=== PATIENT | male | born 1970 | race Caucasian/White ===

== ENCOUNTER 2016-08-28 13:55 | Emergency (ER) | payer OTHER ==
[~2016-08-28] VITALS: Ht 182.8 cm; Wt 113.4 kg
[~2016-08-28 13:55] MED LIST: AMARYL2 MG PO; ASPIRIN EC325 MG PO; CYCLOBENZAPRINE10 MG PO; GLIPIZIDE10 M2 PO; GLIPIZIDE5 MG PO; HYDROCODONE BIT1 T11 PO; LANTUS100 U/ML SC; LISINOPRIL-HYDR1 TA4 PO; LISINOPRIL20 MG PO; LOVASTATIN40 MG PO; LYRICA PO; MEDROL DOSEPAK4 MG PO; METFORMIN1000 MG PO; METFORMIN500 MG PO; NORCO 10-325 T1 EACH PO; NORCO 7.5-3251 EACH PO; PLAVIX75 M1 PO; PLAVIX75 MG PO; SLOW-MAG 106 MG1 ECT PO; TEST STRIPS1 EACH DIAG; TOPROL XL25 MG PO; TRAMADOL50 MG PO; VICODIN ES 7501 TAB PO; VYTORIN 10 MG-41 TA1 PO; XANAX XR0.5 MG PO; ZANTAC 150150 MG PO; ZOCOR20 MG PO; ZOFRAN4 MG PO
[2016-08-28] MEDS ORDERED: ELIQUIS5 M1 PO (14:00)
[2016-08-28] MEDS ORDERED: CYMBALTA20 M1 PO (14:00)
[2016-08-28] MEDS ORDERED: ALPRAZOLAM0.5 M3 PO (14:00)
== END 2016-08-28 16:08 | disposition home or self-care (01) ==
LOC: ED 13:55
DX: S90.01XA Contusion of right ankle, initial encounter (principal); E11.9 Type 2 diabetes mellitus without complications; F17.200 Nicotine dependence, unspecified, uncomplicated; Z79.4 Long term (current) use of insulin; W01.0XXA Fall on same level from slipping, tripping and stumbling without subsequent striking against object, initial encounter; Y92.9 Unspecified place or not applicable; Y99.9 Unspecified external cause status; Y93.89 Activity, other specified

== ENCOUNTER 2016-09-18 18:49 | Inpatient (IN) | payer OTHER ==
[~2016-09-18] VITALS: Ht 182.8 cm; Wt 118.9 kg
--- NOTE | ~2016-09-18 | WRIGHTHP ---
[place], [place] PATIENT HISTORY AND PHYSICAL EXAM NAME: ROLAND CASE [facility] #: [id number] UNIT #: [id number] ROOM: 532 DOCTOR: LAURA YOUSIF MD BIRTHDATE: [birth year] DOS: 09/19/2016 HISTORY OF PRESENT ILLNESS: This patient is 46 years old. The patient comes in with complaints of not feeling good, tiredness and weakness. He thought maybe he had a bladder infection, which he has had in the past, so decided to come into the Emergency Room. He came into the ER, was evaluated and was found to be in rapid AFib and was admitted. He states that he was on Rythmol, but this medicine was discontinued a few months ago. Denies having any chest pains or palpitations, does not have any fever or chills, does not have any nausea or emesis. He does have chronic back pain, but that is under control. PAST MEDICAL HISTORY: Significant for: 1. Chronic atrial fibrillation. 2. Diabetes mellitus type 2, insulin-dependent, poorly controlled with diabetic nephropathy. 3. Benign hypertension. 4. Chest pain with a negative cardiac cath in 2015. 5. History of CVA. 6. Carotid atherosclerosis. 7. Peripheral vascular disease. 8. Chronic back pain from spinal stenosis. MEDICATIONS: The patient is on are Eliquis 5 mg b.i.d., duloxetine 60 daily, Xanax 0.5 daily, glipizide 10 b.i.d., [place] 10 q.i.d., lisinopril 20 daily, Lyrica 150 t.i.d., metformin 500 b.i.d., metoprolol 25 b.i.d., ranitidine 150 b.i.d., Zocor 20 daily, insulin 40 units at bedtime. SOCIAL HISTORY: Smoker of about 1-1.5 packs of cigarettes. Denies using alcohol. Lives at home with his . He has 3 children. PHYSICAL EXAMINATION: VITAL SIGNS: His blood pressure is 144/92, pulse of 96, respirations 20, temperature 97.9. LUNGS: Diminished breath sounds. No wheezes heard. CARDIOVASCULAR: Irregular. Heart rate was in the 130s when he came, this morning it is down to 90s. ABDOMEN: Obese, soft, nontender. EXTREMITIES: Without any edema. ASSESSMENT AND PLAN: 1. Atrial fibrillation with rapid ventricular response. The patient has been placed on IV Cardizem. The heart rate seems to have slowed down. We will continue his Eliquis and Rythmol. We will metoprolol. We will discontinue the Cardizem since the heart rate is controlled we would watch him for 24 hours. 2. Lactic acid elevation could be from the metformin that he is on. 3. Possible urinary tract infection. Urine culture will be sent. IV Rocephin was given. He has normal white cell count. 4. Type 2 diabetes mellitus, insulin-dependent, on insulin, which is continued. 5. Diabetic nephropathy with chronic renal failure, stage 3. Avoid nephrotoxic [place], [place] PATIENT HISTORY AND PHYSICAL EXAM NAME: ROLAND CASE [facility] #: [id number] UNIT #: [id number] ROOM: [facility] DOCTOR: LAURA YOUSIF MD BIRTHDATE: [birth year] medications. LAURA YOUSIF MD CM:HISPHYS:PATIENT HISTORY AND PHYSICAL EXAMINATION [id number] LAURA YOUSIF MD 09/19/16 1322 interface
--- NOTE | ~2016-09-18 | PR ---
[place], [place] PROGRESS NOTE NAME: ROLAND CASE UNIT #: [id number] ROOM: 532 DOCTOR: LAURA YOUSIF MD BIRTHDATE: [birth year] DOS: 09/20/2016 SUBJECTIVE: The patient is doing fine without any complaints. Heart rate is in the 90s, but when he gets up, it does go up into the low 100s. He does not have any complaints of chest pains or palpitations. OBJECTIVE: VITAL SIGNS: Blood pressure is 114/70, pulse of 103, respirations 20, temperature 98.4. LUNGS: Diminished breath sounds, clear. HEART: Irregular. ABDOMEN: Obese, soft, nontender. EXTREMITIES: Without any edema. LABORATORY DATA: Urine culture negative. Blood cultures negative. ASSESSMENT AND PLAN: 1. Atrial fibrillation with rapid ventricular response. Heart rate is better controlled now. The patient is on Rythmol. We will increase the dose of his metoprolol. 2. Urine culture was sent, which was negative. Blood cultures, no bacterial growth. Lactic acid elevation most likely from metformin. 3. Type 2 diabetes mellitus, insulin-dependent. Blood sugars are controlled. LAURA YOUSIF MD CM:PNTRANS 8 LAURA YOUSIF MD 09/21/169 interface
--- NOTE | ~2016-09-18 | DS ---
[place], [place] DISCHARGE SUMMARY NAME: ROLAND CASE UNIT #: [id number] ROOM: 532 DOCTOR: LAURA YOUSIF MD BIRTHDATE: [birth year] DOS: 09/20/2016 DIAGNOSES: 1. Atrial fibrillation with rapid ventricular response. 2. Lactic acidosis from metformin. 3. Benign hypertension. 4. Type 2 diabetes mellitus, insulin-dependent. 5. Diabetic nephropathy. 6. Cardiac catheterization, 2015, showing no coronary artery disease. 7. Carotid atherosclerosis. 8. Peripheral vascular disease. 9. Chronic back pain. 10. Generalized anxiety disorder. 11. History of cerebrovascular accident. DISCHARGE MEDICATIONS: Propafenone 150 t.i.d., metoprolol 50 b.i.d., ranitidine 150 b.i.d., glipizide 10 b.i.d., metformin 500 b.i.d., simvastatin 20 daily, Lantus 40 units subQ at bedtime, lisinopril/hydrochlorothiazide 12.5/20 one tablet daily, Eliquis 5 b.i.d., duloxetine 60 daily, ____ 10 q.i.d., Lyrica 150 t.i.d., Xanax 0.5 daily. HOSPITAL COURSE: This patient is 46 years old, comes in with complaints of feeling tired, weak legs. Please refer to H and P for details. Was found to be in rapid AFib, was admitted to monitored floor. Adjustments in medications were made. Thyroid functions were checked. Urine culture and blood culture were done. The patient did have a lactic acidosis, which most likely is from the metformin that he is on. His blood sugars are fairly under control in the high 100s. The rest of the labs were all within normal limits. WBC count is normal. Blood cultures and urine cultures so far negative. Heart rate is controlled in the low 90s except when he is ambulatory. The patient is stable and can be discharged to home today to be followed up as an outpatient. Echocardiogram was also ordered and is pending. [place], [place] DISCHARGE SUMMARY NAME: ROLAND CASE UNIT #: [id number] ROOM: 532 DOCTOR: LAURA YOUSIF MD BIRTHDATE: [birth year] LAURA OYUSIF MD CM:CLAUDIO 3 27 LAURA YOUSIF MD 09/20/161227 interface
[~2016-09-18 18:49] MED LIST changes: +ALPRAZOLAM0.5 M3 PO; +CYMBALTA20 M1 PO; +ELIQUIS5 M1 PO
[2016-09-18 18:52] VITALS: BP 148/63
[2016-09-18 19:44] LABS: BASO % 0.4 % (0.0-1.0); EOS # 0.4 10*3/uL (0.0-0.4); EOS % 3.8 % (1.0-4.0); HEMATOCRIT 44.5 % (42.0-52.0); IG # 0.1 10*3/uL (0.0-0.1); LYMPH # 2.6 10*3/uL (1.3-4.4); LYMPH % 26.6 % (27.0-41.0); MEAN CELL VOLUME 86.1 fl (80.0-94.0); MEAN CORPUSCULAR HGB CONC 33.7 g/dl (33.0-37.0); MEAN PLATELET VOLUME 12.6 fl (9.6-12.3); MONO % 10.6 % (3.0-9.0); NEUT # 5.7 10*3/uL (2.3-7.9); NEUT % 57.7 % (47.0-73.0); PLATELET COUNT AUTOMATED 123 10*3/uL (130-400); RED BLOOD COUNT 5.17 10*6/uL (4.50-5.90); RED CELL DISTRI WIDTH 13.5 % (0-14.5); WHITE BLOOD COUNT 9.8 10*3/uL (4.8-10.8)
[2016-09-18 19:53] LABS: PROTHROMBIN TIME 10.1 SECONDS (9.0-12.4)
[2016-09-18 20:02] LABS: ALBUMIN 3.2 gm/dl (3.1-4.5); ALKALINE PHOSPHATASE 64 U/L (45-117); BILIRUBIN, TOTAL 0.3 mg/dl (0.2-1.0); BUN 22 mg/dl (7-24); CARBON DIOXIDE 26 mmol/L (21-32); CHLORIDE 99 mmol/L (98-107); EST GLOM FILT AFRICAN AMERICAN > 60 ml/min; GLUCOSE 275 mg/dL (65-99); MAGNESIUM 1.7 mg/dL (1.5-2.1); SGOT/AST 13 IU/L (3-35); SGPT/ALT 25 U/L (12-78); SODIUM 139 mmol/L (136-145); TOTAL PROTEIN 6.8 gm/dL (6.4-8.2)
[2016-09-18 20:04] LABS: BILIRUBIN NEGATIVE (NEGATIVE); BLOOD NEGATIVE (NEGATIVE); CLARITY CLEAR (CLEAR); COLOR YELLOW (YELLOW); GLUCOSE TRACE (NEGATIVE); KETONE NEGATIVE (NEGATIVE); LEUKO ESTERASE NEGATIVE (NEGATIVE); NITRITE NEGATIVE (NEGATIVE); PROTEIN NEGATIVE (NEGATIVE); SPECIFIC GRAVITY 1.025 (1.005-1.030); UROBILINOGEN 0.2 E.U./dl (0.2-1.0)
[2016-09-18 20:05] VITALS: BP 115/87
[2016-09-18 20:06] LABS: TROPONIN I < 0.015 ng/ml (<0.045)
[2016-09-18 20:18] LABS: BACTERIA TRACE; MUCOUS TRACE; RBC 0-2 rbc/hpf (0-2); URINE REFLEX COMMENT NO (NO); WBC 0-2 wbc/hpf (0-5)
[2016-09-18 20:47] VITALS: BP 134/71
[2016-09-18 21:24] VITALS: BP 129/71
[2016-09-18 21:41] LABS: LA>2 REFLEX 2 HR DRAW NOW
[2016-09-18 22:00] VITALS: BP 123/77
[2016-09-18 22:11] LABS: LA>2 RFLX FOLLOW UP AT 2 HRS 2.1 mmol/L (0.4-2.0)
[2016-09-19] VITALS: BP 129/56
[2016-09-19 00:04] LABS: LA>2 REFLEX 4 HR DRAW NOW
[2016-09-19 08:00] VITALS: BP 128/74
[2016-09-19 10:42] VITALS: BP 144/92
[2016-09-19 12:00] VITALS: BP 121/61
[2016-09-19 16:00] VITALS: BP 118/70
[2016-09-19] MEDS ORDERED: LYRICA75 M1 PO (19:13)
[2016-09-19 20:00] VITALS: BP 122/60; BP 91/59
[2016-09-20] VITALS: BP 96/51
[2016-09-20 05:46] VITALS: BP 104/62
[2016-09-20 08:00] VITALS: BP 114/70
[2016-09-20] MEDS ORDERED: LYRICA75 M1 PO (09:10)
[2016-09-20] MEDS ORDERED: NORCO 10-325 T1 EACH PO (09:10)
[2016-09-20] MEDS ORDERED: PROPAFENONE HC150 MG PO (09:10)
[2016-09-20] MEDS ORDERED: METOPROLOL SUCC25 M2 PO (09:10)
[2016-09-20] MEDS ORDERED: ALPRAZOLAM0.5 M3 PO (09:10)
== END 2016-09-20 10:40 | disposition home or self-care (01) | DRG 309 ==
LOC: ED 18:49 → 5E 21:03 → EDHOLD 21:03 → 5E 21:27
PROVIDERS: Nurse Practitioner Family
DX: I48.2 Chronic atrial fibrillation (principal); N39.0 Urinary tract infection, site not specified; E87.2 Acidosis; E11.21 Type 2 diabetes mellitus with diabetic nephropathy; I10 Essential (primary) hypertension; T38.3X5A Adverse effect of insulin and oral hypoglycemic [antidiabetic] drugs, initial encounter; M54.9 Dorsalgia, unspecified; E11.51 Type 2 diabetes mellitus with diabetic peripheral angiopathy without gangrene; F41.1 Generalized anxiety disorder; G89.29 Other chronic pain; Z86.73 Personal history of transient ischemic attack (TIA), and cerebral infarction without residual deficits; Y92.89 Other specified places as the place of occurrence of the external cause

== ENCOUNTER 2017-02-19 12:21 | Emergency (ER) | payer OTHER ==
[~2017-02-19] VITALS: Ht 182.8 cm; Wt 117.9 kg
[~2017-02-19 12:21] MED LIST changes: +LYRICA75 M1 PO; +METOPROLOL SUCC25 M2 PO; +PROPAFENONE HC150 MG PO
[2017-02-19 13:02] LABS: BASO % 0.4 % (0.0-1.0); EOS # 0.3 10*3/uL (0.0-0.4); HEMATOCRIT 44.1 % (42.0-52.0); HEMOGLOBIN 15.1 g/dl (14.0-18.0); LYMPH # 2.6 10*3/uL (1.3-4.4); MEAN CELL VOLUME 85.5 fl (80.0-94.0); MEAN CORPUSCULAR HGB 29.3 pg (27.0-31.0); MEAN CORPUSCULAR HGB CONC 34.2 g/dl (33.0-37.0); MONO # 0.7 10*3/uL (0.1-1.0); MONO % 8.1 % (3.0-9.0); NEUT # 5.3 10*3/uL (2.3-7.9); NEUT % 58.9 % (47.0-73.0); PLATELET COUNT AUTOMATED 107 10*3/uL (130-400); RED BLOOD COUNT 5.16 10*6/uL (4.50-5.90); RED CELL DISTRI WIDTH 13.8 % (0-14.5)
[2017-02-19 13:17] LABS: ALBUMIN 3.5 gm/dl (3.1-4.5); ALKALINE PHOSPHATASE 60 U/L (45-117); BUN 19 mg/dl (7-24); CHLORIDE 105 mmol/L (98-107); CPK 83 U/L (39-308); CREATININE 1.26 mg/dL (0.70-1.30); MAGNESIUM 1.4 mg/dL (1.5-2.1); POTASSIUM 4.1 mmol/L (3.5-5.1); SGOT/AST 14 IU/L (3-35); SGPT/ALT 24 U/L (12-78); SODIUM 138 mmol/L (136-145); TOTAL PROTEIN 7.3 gm/dL (6.4-8.2)
[2017-02-19 13:18] LABS: CKMB 1.6 ng/ml (0.5-3.6)
[2017-02-19 13:19] LABS: TROPONIN I < 0.015 ng/ml (<0.045)
== END 2017-02-19 14:28 | disposition left against medical advice (07) ==
LOC: ED 12:21
PROVIDERS: Nurse Practitioner Family
DX: I48.92 Unspecified atrial flutter (principal); R03.0 Elevated blood-pressure reading, without diagnosis of hypertension; E11.9 Type 2 diabetes mellitus without complications; I48.91 Unspecified atrial fibrillation; F17.200 Nicotine dependence, unspecified, uncomplicated; Z98.890 Other specified postprocedural states; Z79.899 Other long term (current) drug therapy

== ENCOUNTER 2017-10-25 21:04 | Emergency (ER) | payer OTHER ==
[~2017-10-25] VITALS: Ht 182.8 cm; Wt 117.9 kg
[~2017-10-25 21:04] MED LIST changes: +LANTUS SOL100 UNIT/1 SQ; -LANTUS100 U/ML SC; +LISINOPRIL-HCT1 EACH PO
[2017-10-25 22:31] LABS: BASO % 0.4 % (0.0-1.0); EOS # 0.5 10*3/uL (0.0-0.4); EOS % 4.7 % (1.0-4.0); HEMATOCRIT 38.9 % (42.0-52.0); HEMOGLOBIN 12.9 g/dl (14.0-18.0); LYMPH # 2.5 10*3/uL (1.3-4.4); LYMPH % 24.5 % (27.0-41.0); MEAN CELL VOLUME 87.2 fl (80.0-94.0); MEAN CORPUSCULAR HGB 28.9 pg (27.0-31.0); MEAN CORPUSCULAR HGB CONC 33.2 g/dl (33.0-37.0); MEAN PLATELET VOLUME 12.6 fl (9.6-12.3); MONO # 1.2 10*3/uL (0.1-1.0); MONO % 11.6 % (3.0-9.0); NEUT # 5.9 10*3/uL (2.3-7.9); NEUT % 58.2 % (47.0-73.0); PLATELET COUNT AUTOMATED 100 10*3/uL (130-400); RED BLOOD COUNT 4.46 10*6/uL (4.50-5.90); RED CELL DISTRI WIDTH 15.3 % (0-14.5); WHITE BLOOD COUNT 10.1 10*3/uL (4.8-10.8)
[2017-10-25 22:47] LABS: ALBUMIN 3.3 gm/dl (3.1-4.5); CREATININE 1.6 mg/dL (0.70-1.30); POTASSIUM 3.8 mmol/L (3.5-5.1); TOTAL PROTEIN 6.8 gm/dL (6.4-8.2)
[2017-10-25] MEDS ORDERED: SEPTDS PO (23:05)
== END 2017-10-26 01:18 | disposition home or self-care (01) ==
LOC: ED 21:04
PROVIDERS: Student in an Organized Health Care Education/Training Program
DX: L03.031 Cellulitis of right toe (principal); I48.92 Unspecified atrial flutter; E11.65 Type 2 diabetes mellitus with hyperglycemia; Z98.890 Other specified postprocedural states; Z79.899 Other long term (current) drug therapy; Z79.4 Long term (current) use of insulin

== ENCOUNTER 2017-11-05 22:26 | Inpatient (IN) | payer OTHER ==
[2017-11-05] VITALS (10 sets, daily range): BP systolic 75–126; BP diastolic 35–96
[~2017-11-05] VITALS: Ht 182.9 cm; Wt 119.5 kg
--- NOTE | ~2017-11-05 | PR ---
[place], [place] PROGRESS NOTE NAME: ROLAND CASE UNIT #: [id number] ROOM: [facility] DOCTOR: LAURA YOUSIF MD BIRTHDATE: [birth year] DOS: SUBJECTIVE: The patient is doing fairly well, does not have any new complaints. OBJECTIVE: VITAL SIGNS: Graphic trend shows pressure 111/59, pulse of 70, respirations 15 and temperature 97.5. LUNGS: Clear. HEART: Regular. ABDOMEN: Obese. EXTREMITIES: Without any edema. LABORATORY DATA: Shows a glucose of 119, BUN 30, creatinine 1.59, sodium 141, potassium 4.4 and chloride 113. ASSESSMENT AND PLAN: 1. Acute tubular necrosis from hypotension, most likely from the diarrhea that he had, is resolved and his kidney functions are back to close to his baseline. We will discontinue IV fluids and discharge him to home. 1. Type 2 diabetes mellitus. Blood sugars are fairly controlled. Metformin has been discontinued . LAURA YOUSIF MD CM:PNTRANS [id number] LAURA YOUSIF MD 11/07/17 1847 interface
--- NOTE | ~2017-11-05 | DS ---
[place], [place] DISCHARGE SUMMARY NAME: ROLAND CASE UNIT #: [id number] ROOM: [facility] DOCTOR: LAURA YOUSIF MD BIRTHDATE: [birth year] DOS: 11/07/2017 HOSPITAL COURSE: The patient is very well known to us, comes in after feeling tired and weak at home. He arrived, a CT brain that was called was negative. He was found to be hypotensive and in acute kidney injury and so he was admitted. After admission, he was thought to have ATN from multiple hypertensive meds. The patient has also been having a lot of diarrhea for the last 3-4 days and has not been drinking or eating, was on a diuretic as well as metformin, so those meds were discontinued. The patient was given vigorous IV hydration. Also, was given vasopressors in the ER, which was quickly discontinued. With IV fluids, the kidney functions have improved. The BUN and creatinine on admission was 54 and 6.10. It came down to 30 and 1.59 this morning, that is a definite improvement with IV fluids. The plan is therefore to discontinue the IV fluids and discharge him to home today to follow up as an outpatient. I will discontinue the metformin, lisinopril, hydrochlorothiazide and give plain lisinopril at lower dose of 5 mg. Rest of the home meds will remain the same. The patient is advised to watch his blood sugar intake. Type 2 diabetes mellitus: He continues to be on insulin as well as the glipizide. The metformin, again will be discontinued. He does have a habit of drinking excessive amount of soda which he is advised to give up. LAURA YOUSIF MD CM:DISCHARG [id number] LAURA YOUSIF MD 11/07/17 1350 interface
--- NOTE | ~2017-11-05 | WRIGHTHP ---
[place], [place] PATIENT HISTORY AND PHYSICAL EXAM [id number] #: [id number] ROOM: [facility] DOCTOR: LAURA YOUSIF MD BIRTHDATE: [birth year] DOS: 11/05/2017 HISTORY OF PRESENT ILLNESS: This patient 47-year-old, very well known to us. He states that he was doing very well, but about 3 days ago, he started having diarrhea and nausea, did not have any emesis. He is not sure exactly what caused his diarrhea, but maybe he thought it was just a virus and it would pass, but continues to get weak and so he decided to come in the Emergency Room yesterday where he was found to be in acute renal failure and was admitted. He denies having any chest pains or palpitations. He does not have any fever or chills. he does not have any abdominal pain, nausea and emesis. He does not have any urinary symptoms. PAST MEDICAL HISTORY: Significant for: 1. Type 2 diabetes mellitus. The patient is very noncompliant, occasionally does not take his insulin. 2. Chronic atrial fibrillation, last hospitalization in September 2016 with rapid ventricular response. 3. Benign hypertension. 4. Diabetic nephropathy with chronic stage 3 renal failure with the last creatinine about 3. MEDICATIONS: That he is currently on are Cymbalta 60 daily, glipizide 10 b.i.d., Eliquis 5 b.i.d., [place] 10 q.i.d., lisinopril and hydrochlorothiazide 1 tablet daily, metformin 500 b.i.d., metoprolol 500 b.i.d., Lyrica 150 t.i.d., ranitidine 150 b.i.d., simvastatin 20 daily, Lantus 55 units at bedtime. SOCIAL HISTORY: Smoker of about 1 pack of cigarettes a day. Denies using any alcohol. PHYSICAL EXAMINATION: GENERAL: The patient is awake and alert and oriented, in no distress at all. He looks tired. VITAL SIGNS: Graphic trend shows blood pressure of 80/50, pulse of 76, respirations 15. LUNGS: Diminished breath sounds. HEART: Irregular, heart rate in the 70s. ABDOMEN: Obese. EXTREMITIES: Without any edema. ASSESSMENT AND PLAN: 1. The patient with hypotension, resulting in acute tubular necrosis and acute kidney injury. The patient is placed on IV fluids. Vigorous IV hydration should bring the blood pressure drop and the kidney function should improve. 2. Type 2 diabetes mellitus, poorly controlled. Readjust meds. 3. Chronic renal failure stage 3, not a candidate for metformin, nor hydrochlorothiazide, which are both being discontinued. 4. Benign hypertension with chronic atrial fibrillation. Continue medications including Eliquis and Toprol. [place], [place] PATIENT HISTORY AND PHYSICAL EXAM NAME: ROLAND CASE UNIT #: [id number] ROOM: [facility] DOCTOR: LAURA YOUSIF MD BIRTHDATE: [birth year] LAURA YOUSIF MD CM:HISPHYS:PATIENT HISTORY AND PHYSICAL EXAMINATION [id number] LAURA YOUSIF MD 11/06/17 0948 interface
[~2017-11-05 22:26] MED LIST changes: -LANTUS SOL100 UNIT/1 SQ; +LEVEMIR FL100 UNIT/1 SQ; +SEPTDS PO
[2017-11-05 23:06] LABS: BASO # 0.1 10*3/uL (0.0-0.1); BASO % 0.5 % (0.0-1.0); EOS # 0.4 10*3/uL (0.0-0.4); EOS % 2.5 % (1.0-4.0); HEMATOCRIT 36.8 % (42.0-52.0); HEMOGLOBIN 11.9 g/dl (14.0-18.0); LYMPH # 3.2 10*3/uL (1.3-4.4); LYMPH % 19.9 % (27.0-41.0); MEAN CELL VOLUME 88.7 fl (80.0-94.0); MEAN CORPUSCULAR HGB 28.7 pg (27.0-31.0); MEAN CORPUSCULAR HGB CONC 32.3 g/dl (33.0-37.0); MEAN PLATELET VOLUME 12.9 fl (9.6-12.3); MONO # 1.4 10*3/uL (0.1-1.0); MONO % 8.7 % (3.0-9.0); NEUT # 10.9 10*3/uL (2.3-7.9); NEUT % 67.5 % (47.0-73.0); PLATELET COUNT AUTOMATED 134 10*3/uL (130-400); RED BLOOD COUNT 4.15 10*6/uL (4.50-5.90); RED CELL DISTRI WIDTH 15.1 % (0-14.5); WHITE BLOOD COUNT 16.2 10*3/uL (4.8-10.8)
[2017-11-05 23:11] LABS: ACT PARTIAL THROMBO TIME 29.2 SECONDS (20.8-31.5)
[2017-11-05 23:14] LABS: ALBUMIN 3.1 gm/dl (3.1-4.5); ALKALINE PHOSPHATASE 59 U/L (45-117); BUN 54 mg/dl (7-24); CHLORIDE 107 mmol/L (98-107); POTASSIUM 4.4 mmol/L (3.5-5.1); SGOT/AST 15 IU/L (3-35); SGPT/ALT 18 U/L (12-78); SODIUM 138 mmol/L (136-145); TOTAL PROTEIN 6.2 gm/dL (6.4-8.2)
[2017-11-05 23:15] LABS: TROPONIN I < 0.015 ng/ml (<0.045)
[2017-11-06] VITALS (7 sets, daily range): BP systolic 90–117; BP diastolic 40–61
[2017-11-06] MEDS ORDERED: LOPRESSOR50 M1 PO (01:30)
[2017-11-06 06:45] LABS: CREATININE 5.19 mg/dL (0.70-1.30); POTASSIUM 4.4 mmol/L (3.5-5.1)
[2017-11-06 09:53] LABS: BILIRUBIN NEGATIVE (NEGATIVE); BLOOD NEGATIVE (NEGATIVE); CLARITY SL CLOUDY (CLEAR); COLOR YELLOW (YELLOW); GLUCOSE NEGATIVE (NEGATIVE); KETONE TRACE (NEGATIVE); LEUKO ESTERASE NEGATIVE (NEGATIVE); NITRITE NEGATIVE (NEGATIVE); UROBILINOGEN 0.2 E.U./dl (0.2-1.0)
[2017-11-06 10:01] LABS: BACTERIA 1+; EPITHELIAL CELLS 21-30; HYALINE CAST 16-20; MUCOUS 1+
[2017-11-06] MEDS ORDERED: GLUCOPHAGE1000 MG PO (16:09)
[2017-11-06] MEDS ORDERED: PROPAFENONE HY150 MG PO (16:10)
[2017-11-06] MEDS ORDERED: ZESTORETIC 20-1 EACH PO (16:12)
[2017-11-06] MEDS ORDERED: LYRICA200 M1 PO (16:15)
[2017-11-06] MEDS ORDERED: HYDROXYZINE10 MG PO (16:17)
[2017-11-06] MEDS ORDERED: CYCLOBENZAPRINE10 MG PO (16:20)
[2017-11-07] VITALS: BP 95/44
[2017-11-07 04:00] VITALS: BP 111/59
[2017-11-07 06:41] LABS: ALBUMIN 2.6 gm/dl (3.1-4.5); CREATININE 1.59 mg/dL (0.70-1.30); POTASSIUM 4.4 mmol/L (3.5-5.1); TOTAL PROTEIN 5.8 gm/dL (6.4-8.2)
[2017-11-07] MEDS ORDERED: ZESTRIL,PRINIVIL5 MG PO (07:26)
== END 2017-11-07 07:55 | disposition home or self-care (01) | DRG 314 ==
LOC: ED 22:26 → EDHOLD 23:48 → EDBEDREQSVC 23:55 → EDBEDREQ 23:55 → ICCU 23:57
PROVIDERS: Emergency Medicine Emergency Medical Services; Internal Medicine
DX: I95.89 Other hypotension (principal); N17.0 Acute kidney failure with tubular necrosis; E11.22 Type 2 diabetes mellitus with diabetic chronic kidney disease; T46.5X5A Adverse effect of other antihypertensive drugs, initial encounter; G89.29 Other chronic pain; M54.5 Low back pain; I12.9 Hypertensive chronic kidney disease with stage 1 through stage 4 chronic kidney disease, or unspecified chronic kidney disease; N18.3 Chronic kidney disease, stage 3 (moderate); I48.2 Chronic atrial fibrillation; Z79.01 Long term (current) use of anticoagulants; Z82.49 Family history of ischemic heart disease and other diseases of the circulatory system; Z83.3 Family history of diabetes mellitus; Z79.4 Long term (current) use of insulin; Z79.84 Long term (current) use of oral hypoglycemic drugs; Y92.89 Other specified places as the place of occurrence of the external cause; Z79.899 Other long term (current) drug therapy; Z80.9 Family history of malignant neoplasm, unspecified; Z72.89 Other problems related to lifestyle

== ENCOUNTER 2018-01-13 16:30 | Emergency (ER) | payer OTHER ==
[~2018-01-13] VITALS: Ht 182.8 cm; Wt 113.4 kg
[~2018-01-13 16:30] MED LIST changes: +GLUCOPHAGE1000 MG PO; +HYDROXYZINE10 MG PO; +LOPRESSOR50 M1 PO; +LYRICA200 M1 PO; +PROPAFENONE HY150 MG PO; +ZESTORETIC 20-1 EACH PO; +ZESTRIL,PRINIVIL5 MG PO
[2018-01-13 18:03] LABS: BASO % 0.4 % (0.0-1.0); EOS # 0.3 10*3/uL (0.0-0.4); EOS % 3.1 % (1.0-4.0); HEMATOCRIT 41.7 % (42.0-52.0); HEMOGLOBIN 13.4 g/dl (14.0-18.0); LYMPH # 2.3 10*3/uL (1.3-4.4); LYMPH % 23.3 % (27.0-41.0); MEAN CELL VOLUME 85.8 fl (80.0-94.0); MEAN CORPUSCULAR HGB 27.6 pg (27.0-31.0); MEAN CORPUSCULAR HGB CONC 32.1 g/dl (33.0-37.0); MEAN PLATELET VOLUME 13.2 fl (9.6-12.3); MONO # 0.7 10*3/uL (0.1-1.0); MONO % 7.5 % (3.0-9.0); NEUT # 6.3 10*3/uL (2.3-7.9); NEUT % 65.4 % (47.0-73.0); PLATELET COUNT AUTOMATED 102 10*3/uL (130-400); RED BLOOD COUNT 4.86 10*6/uL (4.50-5.90); RED CELL DISTRI WIDTH 13.4 % (0-14.5); WHITE BLOOD COUNT 9.7 10*3/uL (4.8-10.8)
[2018-01-13 18:04] LABS: BILIRUBIN NEGATIVE (NEGATIVE); BLOOD NEGATIVE (NEGATIVE); CLARITY CLEAR (CLEAR); COLOR YELLOW (YELLOW); GLUCOSE 1+ (NEGATIVE); KETONE NEGATIVE (NEGATIVE); LEUKO ESTERASE NEGATIVE (NEGATIVE); NITRITE NEGATIVE (NEGATIVE); PH 5.5 (5.0-9.0); SPECIFIC GRAVITY 1.015 (1.005-1.030); UROBILINOGEN 0.2 E.U./dl (0.2-1.0)
[2018-01-13 18:23] LABS: ALBUMIN 3.1 gm/dl (3.1-4.5); ALKALINE PHOSPHATASE 74 U/L (45-117); BUN 13 mg/dl (7-24); CHLORIDE 105 mmol/L (98-107); CREATININE 1.11 mg/dL (0.70-1.30); LIPASE 181 U/L (73-393); POTASSIUM 4.3 mmol/L (3.5-5.1); SGOT/AST 19 IU/L (3-35); SGPT/ALT 19 U/L (12-78); SODIUM 137 mmol/L (136-145); TOTAL PROTEIN 6.8 gm/dL (6.4-8.2)
[2018-01-13 18:24] LABS: WBC 0-2 wbc/hpf (0-5)
[2018-01-13] MEDS ORDERED: IBUPROFEN600 MG PO (20:33)
== END 2018-01-13 20:35 | disposition home or self-care (01) ==
LOC: ED 16:30
PROVIDERS: Physician Assistant
DX: N45.1 Epididymitis (principal); I86.1 Scrotal varices; R16.1 Splenomegaly, not elsewhere classified; M54.5 Low back pain; F17.200 Nicotine dependence, unspecified, uncomplicated; Z79.4 Long term (current) use of insulin; Z79.899 Other long term (current) drug therapy

== ENCOUNTER 2019-03-24 11:29 | Emergency (ER) | payer OTHER ==
[~2019-03-24] VITALS: Ht 182.8 cm; Wt 108.9 kg
[~2019-03-24 11:29] MED LIST changes: +DOXYCYCLINE100 M3 PO; +IBUPROFEN600 MG PO
[2019-03-24] MEDS ORDERED: CEPHALEXIN500 M1 PO (13:25)
== END 2019-03-24 13:34 | disposition home or self-care (01) ==
LOC: ED 11:29
DX: S91.112A Laceration without foreign body of left great toe without damage to nail, initial encounter (principal); Z23 Encounter for immunization; Z79.2 Long term (current) use of antibiotics; Z79.899 Other long term (current) drug therapy; Z79.4 Long term (current) use of insulin; W22.8XXA Striking against or struck by other objects, initial encounter; Y93.89 Activity, other specified; Y92.89 Other specified places as the place of occurrence of the external cause; Y99.8 Other external cause status

== ENCOUNTER 2019-04-06 17:36 | Emergency (ER) | payer OTHER ==
[~2019-04-06] VITALS: Ht 182.8 cm; Wt 108.9 kg
[~2019-04-06 17:36] MED LIST changes: +CEPHALEXIN500 M1 PO
[2019-04-06] MEDS ORDERED: KEFLEX500 M1 PO (18:10)
== END 2019-04-06 18:30 | disposition home or self-care (01) ==
LOC: ED 17:36
DX: S91.112D Laceration without foreign body of left great toe without damage to nail, subsequent encounter (principal); L08.9 Local infection of the skin and subcutaneous tissue, unspecified; E11.9 Type 2 diabetes mellitus without complications; G89.29 Other chronic pain; W22.8XXD Striking against or struck by other objects, subsequent encounter

== ENCOUNTER 2019-04-19 15:55 | Emergency (ER) | payer OTHER ==
[~2019-04-19] VITALS: Ht 182.8 cm; Wt 108.9 kg
[~2019-04-19 15:55] MED LIST changes: +KEFLEX500 M1 PO
[2019-04-19 17:13] LABS: BASO % 0.2 % (0.0-1.0); EOS # 0.2 10*3/uL (0.0-0.4); EOS % 2.8 % (1.0-4.0); LYMPH # 1.9 10*3/uL (1.3-4.4); LYMPH % 23.6 % (27.0-41.0); MEAN CELL VOLUME 85.4 fl (80.0-94.0); MEAN CORPUSCULAR HGB 27.2 pg (27.0-31.0); MEAN CORPUSCULAR HGB CONC 31.8 g/dl (33.0-37.0); MEAN PLATELET VOLUME 12.2 fl (9.6-12.3); MONO # 0.6 10*3/uL (0.1-1.0); MONO % 7.5 % (3.0-9.0); NEUT # 5.3 10*3/uL (2.3-7.9); NEUT % 65.4 % (47.0-73.0); PLATELET COUNT AUTOMATED 89 10*3/uL (130-400); RED BLOOD COUNT 5.15 10*6/uL (4.50-5.90); RED CELL DISTRI WIDTH 13.5 % (0-14.5); WHITE BLOOD COUNT 8.1 10*3/uL (4.8-10.8)
[2019-04-19 17:30] LABS: ALBUMIN 2.8 gm/dl (3.1-4.5); ALKALINE PHOSPHATASE 79 U/L (45-117); BUN 15 mg/dl (7-24); CHLORIDE 105 mmol/L (98-107); CREATININE 1.03 mg/dL (0.70-1.30); LIPASE 263 U/L (73-393); POTASSIUM 3.7 mmol/L (3.5-5.1); SGOT/AST 10 IU/L (3-35); SGPT/ALT 16 U/L (12-78); SODIUM 138 mmol/L (136-145); TOTAL PROTEIN 7.3 gm/dL (6.4-8.2); TROPONIN I < 0.015 ng/ml (<0.045)
[2019-04-19 17:31] LABS: INTERNATIONAL NORM RATIO 0.9 (2.0-3.5)
== END 2019-04-19 19:36 | disposition home or self-care (01) ==
LOC: ED 15:55
PROVIDERS: Nurse Practitioner Family
DX: L08.9 Local infection of the skin and subcutaneous tissue, unspecified (principal); D69.49 Other primary thrombocytopenia; E11.9 Type 2 diabetes mellitus without complications; I10 Essential (primary) hypertension; E78.5 Hyperlipidemia, unspecified; G89.29 Other chronic pain; Z79.2 Long term (current) use of antibiotics; Z79.899 Other long term (current) drug therapy

== ENCOUNTER → 2019-08-20 | Outpatient (CLI) | payer OTHER ==
[2019-08-20 11:49] LABS: BASO % 0.3 % (0.0-1.0); EOS # 0.2 10*3/uL (0.0-0.4); EOS % 1.9 % (1.0-4.0); HEMATOCRIT 45.7 % (42.0-52.0); HEMOGLOBIN 14.6 g/dl (14.0-18.0); LYMPH % 18.2 % (27.0-41.0); MEAN CELL VOLUME 84.6 fl (80.0-94.0); MEAN CORPUSCULAR HGB CONC 31.9 g/dl (33.0-37.0); MEAN PLATELET VOLUME 13.3 fl (9.6-12.3); MONO # 1.1 10*3/uL (0.1-1.0); MONO % 9.8 % (3.0-9.0); NEUT # 7.5 10*3/uL (2.3-7.9); NEUT % 69.2 % (47.0-73.0); PLATELET COUNT AUTOMATED 118 10*3/uL (130-400); WHITE BLOOD COUNT 10.9 10*3/uL (4.8-10.8)
[2019-08-20 12:32] LABS: CHLORIDE 103 mmol/L (98-107); SODIUM 133 mmol/L (136-145)
[2019-08-20 12:42] LABS: ALBUMIN 3.1 gm/dl (3.1-4.5); ALKALINE PHOSPHATASE 102 U/L (45-117); BUN 20 mg/dl (7-24); CHOLESTEROL 154 mg/dL (<200); CREATININE 1.14 mg/dL (0.70-1.30); FREE T4 0.89 ng/dl (0.76-1.46); HDL CHOLESTEROL 21 mg/dl (40-60); SGOT/AST 9 IU/L (3-35); SGPT/ALT 19 U/L (12-78); TRIGLYCERIDES 746 mg/dl (<150)
[2019-08-20 13:27] LABS: VITAMIN D, 25-HYDROXY 14.6 ng/mL (30-100)
== END | disposition home or self-care (01) ==
LOC: LAB 11:23
PROVIDERS: Internal Medicine
DX: M51.36 Other intervertebral disc degeneration, lumbar region (principal); Z12.5 Encounter for screening for malignant neoplasm of prostate; E11.9 Type 2 diabetes mellitus without complications; I10 Essential (primary) hypertension; E78.2 Mixed hyperlipidemia; E55.9 Vitamin D deficiency, unspecified

== ENCOUNTER 2020-05-30 13:43 | Inpatient (IN) | payer OTHER ==
[~2020-05-30] VITALS: Ht 185.4 cm; Wt 106.7 kg
[2020-05-30 13:48] VITALS: BP 100/60
[2020-05-30 14:47] LABS: HEMATOCRIT 40.4 % (42.0-52.0); MEAN CELL VOLUME 83.6 fl (80.0-94.0); MEAN CORPUSCULAR HGB 26.5 pg (27.0-31.0); MEAN CORPUSCULAR HGB CONC 31.7 g/dl (33.0-37.0); MEAN PLATELET VOLUME 12.7 fl (9.6-12.3); PLATELET COUNT AUTOMATED 131 10*3/uL (130-400); RED BLOOD COUNT 4.83 10*6/uL (4.50-5.90); RED CELL DISTRI WIDTH 13.3 % (0-14.5); WHITE BLOOD COUNT 18.3 10*3/uL (4.8-10.8)
[2020-05-30 15:03] LABS: ALBUMIN 1.9 gm/dl (3.1-4.5); ALKALINE PHOSPHATASE 138 U/L (45-117); BUN 17 mg/dl (7-24); CHLORIDE 96 mmol/L (98-107); CREATININE 1.38 mg/dL (0.70-1.30); LIPASE 189 U/L (73-393); PLATELET SUFFICIENCY LOW (NORMAL); POTASSIUM 4.2 mmol/L (3.5-5.1); SGOT/AST 16 IU/L (3-35); SGPT/ALT 17 U/L (12-78); SODIUM 128 mmol/L (136-145); TOTAL CELLS COUNTED 100 #CELLS
[2020-05-30 15:10] LABS: TROPONIN I < 0.015 ng/ml (<0.045)
[2020-05-30 15:33] LABS: ACT PARTIAL THROMBO TIME 39.5 SECONDS (20.0-32.1); INTERNATIONAL NORM RATIO 1.2 (2.0-3.5)
[2020-05-30 19:56] VITALS: BP 104/79
--- NOTE | 2020-05-30 19:59 | NUR ---
PATIENT REFUSES WOUND PHOTOS AT THIS TIME. PODIATRY HAS ALREADY DRESSED THE WOUND AND DUE TO INCREASED PAIN HE DONT WANT THE DRESSING TAKEN OFF FOR PHOTOS.
--- NOTE | 2020-05-30 21:07 | NUR ---
CALLED CHINTAN PT REQUESTED TO UPDATE HER AND HAVE HER CALL BACK SO PHONE COULD TO TRANSFERED TO PT ROOM I SPOKE WITH CHINTAN AT
[2020-05-31] VITALS (11 sets, daily range): BP systolic 73–137; BP diastolic 41–85
[2020-05-31 06:11] LABS: BASO # 0.1 10*3/uL (0.0-0.1); BASO % 0.4 % (0.0-1.0); EOS # 0.1 10*3/uL (0.0-0.4); EOS % 0.6 % (1.0-4.0); HEMATOCRIT 38.5 % (42.0-52.0); LYMPH # 1.8 10*3/uL (1.3-4.4); LYMPH % 11.5 % (27.0-41.0); MEAN CORPUSCULAR HGB 26.7 pg (27.0-31.0); MEAN CORPUSCULAR HGB CONC 32.2 g/dl (33.0-37.0); MEAN PLATELET VOLUME 12.2 fl (9.6-12.3); MONO # 1.5 10*3/uL (0.1-1.0); MONO % 9.4 % (3.0-9.0); NEUT # 11.8 10*3/uL (2.3-7.9); NEUT % 76.5 % (47.0-73.0); PLATELET COUNT AUTOMATED 126 10*3/uL (130-400); RED BLOOD COUNT 4.64 10*6/uL (4.50-5.90); RED CELL DISTRI WIDTH 13.3 % (0-14.5); WHITE BLOOD COUNT 15.4 10*3/uL (4.8-10.8)
[2020-05-31 06:18] LABS: BUN 14 mg/dl (7-24); CHLORIDE 102 mmol/L (98-107); CREATININE 1.11 mg/dL (0.70-1.30); POTASSIUM 3.5 mmol/L (3.5-5.1); SODIUM 133 mmol/L (136-145)
--- NOTE | 2020-05-31 07:04 | NUR ---
REPORT CALLED TO PAULINE HERRERA ON . GAVE REPORT TO MOON WILLARD RN. PATIENT LEFT DEPARTMENT TO [facility] WILL BE GOING TO POST SURGERY.
--- NOTE | 2020-05-31 21:22 | NUR ---
PT COMPLAINED OF PAIN, 6/10 IN SEVERITY TO HIS FOOT. WILL MEDICATE PER THE MAR AND FOLLOW UP.
--- NOTE | 2020-05-31 23:00 | NUR ---
ASSUMED CARE OF PT AT THIS TIME. PT VOICES NO COMPLAINTS. CALL LIGHT IN REACH
[2020-06-01] VITALS: BP 105/58
--- NOTE | 2020-06-01 01:00 | NUR ---
IN TO SEE PT. PT SLEEPING, RESPS EASY.
--- NOTE | 2020-06-01 04:00 | NUR ---
PT SLEEPING AT THIS TIME
--- NOTE | 2020-06-01 05:54 | NUR ---
PT MEDICATED WITH NORCO PER ORDER FOR COMPLAINTS OF LEFT LEG PAIN. WILL MONITOR
--- NOTE | 2020-06-01 06:50 | NUR ---
PER PT, NORCO EFFECTIVE FOR PAIN
[2020-06-01 07:25] LABS: BASO # 0.1 10*3/uL (0.0-0.1); BASO % 0.5 % (0.0-1.0); EOS # 0.2 10*3/uL (0.0-0.4); EOS % 1.5 % (1.0-4.0); LYMPH # 1.8 10*3/uL (1.3-4.4); LYMPH % 15.4 % (27.0-41.0); MEAN CELL VOLUME 82.7 fl (80.0-94.0); MEAN CORPUSCULAR HGB CONC 31.5 g/dl (33.0-37.0); MEAN PLATELET VOLUME 12.2 fl (9.6-12.3); MONO # 1.1 10*3/uL (0.1-1.0); MONO % 9.6 % (3.0-9.0); NEUT # 8.3 10*3/uL (2.3-7.9); NEUT % 71.5 % (47.0-73.0); PLATELET COUNT AUTOMATED 140 10*3/uL (130-400); RED BLOOD COUNT 4.11 10*6/uL (4.50-5.90); RED CELL DISTRI WIDTH 13.7 % (0-14.5); WHITE BLOOD COUNT 11.6 10*3/uL (4.8-10.8)
[2020-06-01 07:36] LABS: BUN 22 mg/dl (7-24); CHLORIDE 100 mmol/L (98-107); CREATININE 1.33 mg/dL (0.70-1.30); POTASSIUM 3.3 mmol/L (3.5-5.1); SODIUM 132 mmol/L (136-145)
[2020-06-01 08:00] VITALS: BP 118/103
[2020-06-01 12:00] VITALS: BP 120/56
[2020-06-01 14:08] LABS: ACID FAST SPEC PROCESSING Tissue Grinding (.)
[2020-06-01 14:08] LABS: ACID FAST SPEC PROCESSING Tissue Grinding (.)
[2020-06-01 14:08] LABS: ACID FAST SPEC PROCESSING Tissue Grinding (.)
[2020-06-01 14:08] LABS: ACID FAST SPEC PROCESSING Tissue Grinding (.)
[2020-06-01 14:08] LABS: ACID FAST SPEC PROCESSING Tissue Grinding (.)
[2020-06-01 16:00] VITALS: BP 98/50
[2020-06-01 20:00] VITALS: BP 107/53
--- NOTE | 2020-06-01 20:14 | NUR ---
ELECTRODES REPLACED AND TECHNOLOGY DEVELOPMENT INTERN LEADS ADJUSTED PT HAD BEEN OFF MONITOR. PT DENIES ANY NEEDS AT PRESENT TIME. WILL CONTINUE TO MONITOR. BED LEFT LOCKED IN LOW POSITION, CALL LIGHT IN REACH.
--- NOTE | 2020-06-01 22:51 | NUR ---
PO NORCO GIVEN FOR C/O L FOOT/LEG PAIN RATED 5/10. WILL MONITOR EFFECTIVENESS. CALL LIGHT LEFT IN REACH.
[2020-06-02] VITALS: BP 103/51
[2020-06-02 05:15] VITALS: BP 104/48
[2020-06-02 06:46] LABS: BASO # 0.1 10*3/uL (0.0-0.1); BASO % 0.5 % (0.0-1.0); EOS # 0.2 10*3/uL (0.0-0.4); EOS % 1.5 % (1.0-4.0); HEMATOCRIT 31.9 % (42.0-52.0); LYMPH # 1.5 10*3/uL (1.3-4.4); LYMPH % 13.5 % (27.0-41.0); MEAN CELL VOLUME 84.2 fl (80.0-94.0); MEAN CORPUSCULAR HGB 26.9 pg (27.0-31.0); MEAN PLATELET VOLUME 12.5 fl (9.6-12.3); MONO % 8.8 % (3.0-9.0); NEUT # 8.2 10*3/uL (2.3-7.9); NEUT % 74.4 % (47.0-73.0); PLATELET COUNT AUTOMATED 145 10*3/uL (130-400); RED BLOOD COUNT 3.79 10*6/uL (4.50-5.90); RED CELL DISTRI WIDTH 13.5 % (0-14.5)
[2020-06-02 07:04] LABS: BUN 24 mg/dl (7-24); CHLORIDE 103 mmol/L (98-107); CREATININE 1.31 mg/dL (0.70-1.30); POTASSIUM 3.9 mmol/L (3.5-5.1); SODIUM 133 mmol/L (136-145)
[2020-06-02 08:00] VITALS: BP 118/70
--- NOTE | 2020-06-02 10:38 | NUR ---
Ergonomics Technician in to talk to patient. Patient states lives at with home with his and 2 daughters. There are 13 into the basement and 3 up to the front porch steps in the home. Physician: Dr. Soo Wells Pharmacy: [facility] Home health services: none Patient's level of ADLs: INDEPENDENT Patient has working utilities: yes DME: [employer]; would like to have a walker Follow-up physician's appointment after d/c: prefers to make his own Does patient want to access PORTAL?: no Discharge plan discussed with patient. He states he is independent and he lives with his and 2 daughters. He is not receptive to snf at all, but is receptive to visiting nurses whichever company his insurance will cover. . PAULINE WHARTON
--- NOTE | 2020-06-02 10:40 | NUR ---
PHYSICAL THERAPY Physical Therapy evaluation completed on 5E with full evaluation to follow. Moderate complexity skilled PT evaluation per chart review and evaluation, [id number]. Recommend physical therapy per plan of care and SNF vs. HH with 24hr care and assist upon discharge. Concern of 4 steps without handrail to enter home. Patient is non-weight bearing to Left LE with wound vac. Thank you for this referral. Rachael Perez,PT,DPT
--- NOTE | 2020-06-02 10:50 | NUR ---
Notified podiatry resident Dr. Jerry of [facility] wound vac forms needing completed for patient to have home wound vac.
--- NOTE | 2020-06-02 11:35 | NUR ---
Occupational Therapy evaluation completed on with full evaluation to follow. Recommend occupational therapy per plan of care and SNF due to NWB L LE and stairs to enter home without rails upon discharge. Thank you for this referral. Delmi Chen OTR/L
[2020-06-02 12:00] VITALS: BP 90/44
--- NOTE | 2020-06-02 13:32 | NUR ---
PT C/O 6 OR 7/10 PAIN IN BLE. MEDICATED WITH PRN NORCO PER ORDER. WILL MONITOR
[2020-06-02 16:00] VITALS: BP 88/52
--- NOTE | 2020-06-02 17:18 | NUR ---
PHYSICAL THERAPY Nursing screen received and chart reviewed. PT evaluation received and completed. Recommend SNF vs. home health pending progression and safety with NWB status to left LE. Thank you. Rachael Perez,PT,DPT
[2020-06-02 20:00] VITALS: BP 111/70
[2020-06-03] VITALS: BP 129/54
[2020-06-03 06:56] LABS: BASO % 0.3 % (0.0-1.0); EOS # 0.2 10*3/uL (0.0-0.4); EOS % 1.7 % (1.0-4.0); HEMATOCRIT 33.3 % (42.0-52.0); LYMPH # 1.4 10*3/uL (1.3-4.4); LYMPH % 12.4 % (27.0-41.0); MEAN CELL VOLUME 85.4 fl (80.0-94.0); MEAN CORPUSCULAR HGB 26.4 pg (27.0-31.0); MEAN CORPUSCULAR HGB CONC 30.9 g/dl (33.0-37.0); MEAN PLATELET VOLUME 12.1 fl (9.6-12.3); MONO # 0.8 10*3/uL (0.1-1.0); MONO % 7.1 % (3.0-9.0); NEUT # 8.7 10*3/uL (2.3-7.9); NEUT % 77.2 % (47.0-73.0); PLATELET COUNT AUTOMATED 171 10*3/uL (130-400); RED CELL DISTRI WIDTH 13.7 % (0-14.5); WHITE BLOOD COUNT 11.2 10*3/uL (4.8-10.8)
--- NOTE | 2020-06-03 07:25 | NUR ---
PHYSICAL THERAPY Patient seen this am 1;1 for therapy visit and was relaxing supine in bed upon therapist arrival. Patient identified by name / and presented with L LE wound vac. Patient reports no c/o's of pain at this time and educated on L LE NWB status to promote safe wound healing. Patient transfers supine to sit EOB, then sit to stand with SBA x 1, use of wh walker standing support. Prior to transfer, therapist adjusted walker to proper standing height to improve patient standing posture / safety awareness as patient tolerated static stand x 1 minute without c/o. Patient also completed SPT to BSC, wh walker, SBA, demonstrating good safety / performance, then ambulated 15'x 1 around bed to EOB sit, SBA, wh walker. Patient was 100% compliant with NWB status, L LE, demonstrating "bunny hop" gait pattern and remained EOB sit as breakfast arrived. Patient remained with call light, tray table and cell phone. Will continue per POC as tolerated, total treatment time 17 minutes. Bryon Hyde, ASSISTANT DIRECTOR OF NURSING
[2020-06-03 07:28] LABS: BUN 18 mg/dl (7-24); CHLORIDE 104 mmol/L (98-107); POTASSIUM 3.9 mmol/L (3.5-5.1); SODIUM 136 mmol/L (136-145)
[2020-06-03 07:29] LABS: CREATININE 1.36 mg/dL (0.70-1.30)
--- NOTE | 2020-06-03 07:40 | NUR ---
OT NOTE Pt was seen this A.M. 1:1 for 15 minute OT session. Upon arrival pt was supine in bed. Pt identified by name and and had no complaints at this time. Pt presented to therapy with wound vac to LLE which remained in place throughout the entire session. Pt was able to self recall and verbalize NWB to LLE. Pt transferred supine to sit EOB with SBA. While sitting EOB pt donned R sock with SBA. Sit to stand completed from bed level with SBA and use of w/w for UE support. Challenged pt's static standing tolerance needed for increased I and enhanced endurance, pt was able to tolerate aprox 3 minutes before sitting due to fatigue. Pt then completed standing pivot from the EOB to the bedside commode with SBA while maintaining 100% NWB to LLE. Pt then doffed and donned pants while standing with 100% compliance of NWB to LLE. Pt transferred on/off bedside commode with SBA. Functional mobility was then completed around the bed to the EOB with SBA and use of w/w while maintaining NWB to LLE. Pt presented with F+/G- standing balance throughout. Pt was left sitting upright on the EOB with call light in hand, tray table in place, and phone in reach. Continue with POC as able. FRANNIE Mathew/Michaela
[2020-06-03 09:10] LABS: ACID FAST SPEC PROCESSING Tissue Grinding (.)
--- NOTE | 2020-06-03 09:11 | NUR ---
Discussed discharge planning with patient. He was very upset about going to the [facility] facility, being quarentined for 14 days and then not being able to see his family after that. He wants to go home with IV ABX; He and his two daughters ages 17 and 19 are willing to learn. He will also go to whichever wound care facility podiatry recommends for wound vac care. I asked him if he wanted to discuss with his family and he said no, they want him to come home also and are willing to help with his care. Notified patient he will not be discharged until the final cultures come back so the doctors know which antibiotic is best for his wound.
--- NOTE | 2020-06-03 09:13 | NUR ---
Spoke to Clive at [facility] regarding [employer] wound vac paperwork needing completed. Faxed. Awaiting return fax.
--- NOTE | 2020-06-03 09:55 | NUR ---
Contacted [facility] who stated they do not accept patients insurance; Contacted [facility] and they are able to accept patient, explained he will not be discharged until his wound cultures come back and they can determine the best antibiotic
[2020-06-03 12:00] VITALS: BP 120/71
--- NOTE | 2020-06-03 14:12 | NUR ---
DR PERKINS NOTIFIED THAT DR ACOSTA WOULD LIKE PT TRANSFERRED TO [facility] IN THE MORNING FOR AN ANGIOGRAM. PHYSICIAN STATES THAT HE WILL BE AT THE HOSPITAL IN THE MORNING AND THAT HE WILL DISCHARGE THE PATIENT THEN.
[2020-06-03 16:00] VITALS: BP 123/75
--- NOTE | 2020-06-03 16:00 | NUR ---
DR ACOSTA'S NURSE, JOSEPH, CALLS THIS NURSE AND STATES THAT PT ELIQUIS NEEDS TO BE HELD AT THIS TIME FOR PT ANGIOGRAM PROCEDURE. PER JOSEPH, ELIQUIS NEEDS HELD 48 HOURS IN ADVANCE OF PROCEDURE. PT LAST DOSAGE OF ELIQUIS WAS THIS MORNING AROUND 09. AT THIS TIME, PT IS TO HAVE PROCEDURE ON SATURDAY 06/09. NURSE RUIZ STATES THAT [facility] WILL RECEIVE A PHONE CALL ON TUESDAY WITH THE TIME FOR THE ANGIOGRAM.
[2020-06-03 20:00] VITALS: BP 106/50
--- NOTE | 2020-06-03 20:16 | NUR ---
DR PERKINS NOTIFIED THAT ELIQUIS HAS BEEN STOPPED ON PT AT THIS TIME PER THE TELEPHONE ORDERS RECEIVED FROM DR ACOSTA'S NURSE. DR PERKINS ALSO NOTIFIED THAT PT WILL NOW HAVE ANGIOGRAM PROCEDURE AT [facility] ON SATURDAY 06/09 AND THAT A NURSE WILL CALL [facility] ON TUESDAY WITH A TIME AND INSTRUCTIONS ON TRANSPORTING PT.
[2020-06-04] VITALS: BP 118/40
--- NOTE | 2020-06-04 05:34 | NUR ---
24 HR chart check completed.
--- NOTE | 2020-06-04 07:30 | NUR ---
TOOK OVER CARE OF PT. PT RESTING IN BED. RESPIRATIONS EASY AND UNLABORED ON ROOM AIR. WOUND VAC IN TACT. DRESSING C/D/I. NO DISTRESS NOTED. CALL LIGHT IN REACH.
[2020-06-04 08:00] VITALS: BP 130/46
--- NOTE | 2020-06-04 08:21 | NUR ---
OT NOTE Attempted to see pt this A.M. for OT session and upon arrival pt was out of the room in surgery. Will check back at a later time and continue with POC as able. FRANNIE Mathew/Michaela
--- NOTE | 2020-06-04 09:20 | NUR ---
PHYSICAL THERAPY Patient was approached several times this am, however was out of room for a medical procedure and not available for therapy at this time. Will continue per POC as able. Bryon Hyde, CATEGORY MANAGER
--- NOTE | 2020-06-04 09:56 | NUR ---
Spoke to Clive at [facility] regarding [employer] wound vac paperwork as no signed copy has been received. Re-faxed to [facility].
--- NOTE | 2020-06-04 11:55 | NUR ---
Spoke to Clive at [facility]. She is awaiting Dr. Connor to come into the office. He will be in about 2pm. Awaiting completed [employer] wound form.
[2020-06-04 12:00] VITALS: BP 138/58
--- NOTE | 2020-06-04 12:30 | NUR ---
SPOKE TO SURGERY NURSE KAILA. OKAY TO USE PT PICC LINE AT THIS TIME.
--- NOTE | 2020-06-04 12:55 | NUR ---
PHYSICAL THERAPY Patient seen this pm 1:1 for therapy visit and was resting supine in bed upon therapist arrival. Patient identified by name / and presents with L LE wound vac, reporting no c/o's pain, only mild discomfort L foot. Patient transfers supine to sit EOB SBA x 1, then sit to stand SBA with use of wh walker standing support. Patient ambulates 20'x 2 to bathroom, wh walker, CGA, demonstrating 3 pt, "bunny hop" gait pattern. Patient needed v/c to control safe gait velocity and completed safe toilet transfer with use of R side grab bar, SBA x 1. Patient was only 50% compliant with NWB on L LE this session and 50% was TTWB as patient educated on importance once again of maintaining NWB status to promote MAX wound healing. Patient returned to EOB sit as his lunch arrived and remained with call light, tray table and cell phone. Will continue per POC as tolerated, total treatment time 17 minutes. Bryon Hyde, CAUL PULLER
--- NOTE | 2020-06-04 13:05 | NUR ---
OT NOTE Pt was seen this P.M. 1:1 for 15 minute OT session. Upon arrival pt was supine in bed. Pt identified by name and and had no complaints at this time. Pt presented to therapy with wound vac to LLE which remained in place throughout the entire session. Pt was able to self recall and verbalize NWB to LLE. Pt transferred supine to sit EOB independent. Sit to stand completed from bed level with SBA and use of w/w for UE support. Functional mobility completed to the bathroom with SBA and use of w/w. Throughout pt was provided constant verbal prompts due to being aprox 50% compliant with NWB, pt presented with toe touch weight bearing. Pt transferred on/off standard commode with SBA. Clothing management completed with SBA and toilet hygiene completed idependent while seated. He then stood sink side while washing his hands with SBA while being 50% compliant with NWB to LLE. Functional mobility completed back to the EOB with SBA and use of w/w. There he transferred sit to supine idependent and was left with call light in hand, tray table in place, and phone in reach. Continue with POC as able. FRANNIE Mathew/Michaela
--- NOTE | 2020-06-04 13:12 | NUR ---
At this time according to progress notes, patient is scheduled to go to [facility] for a procedure with Dr. Guzman on Tuesday06/09/2020. I contacted [facility] and notified them with the update. Stated patient will most likely discharge to home from [place] on Tuesday. They've added patient to their schedule for Tuesday
--- NOTE | 2020-06-04 15:04 | NUR ---
Spoke to Clive at [facility]. Dr. Connor has not been in the office yet. He is currently in surgery. She states she will fax as soon as the wound vac paperwork is signed.
[2020-06-04 15:14] LABS: BASO % 0.4 % (0.0-1.0); EOS # 0.2 10*3/uL (0.0-0.4); EOS % 2.7 % (1.0-4.0); HEMATOCRIT 32.7 % (42.0-52.0); LYMPH # 1.3 10*3/uL (1.3-4.4); LYMPH % 15.7 % (27.0-41.0); MEAN CELL VOLUME 84.7 fl (80.0-94.0); MEAN CORPUSCULAR HGB 26.2 pg (27.0-31.0); MEAN CORPUSCULAR HGB CONC 30.9 g/dl (33.0-37.0); MEAN PLATELET VOLUME 11.2 fl (9.6-12.3); MONO # 0.6 10*3/uL (0.1-1.0); MONO % 7.3 % (3.0-9.0); NEUT % 72.8 % (47.0-73.0); PLATELET COUNT AUTOMATED 200 10*3/uL (130-400); RED BLOOD COUNT 3.86 10*6/uL (4.50-5.90); RED CELL DISTRI WIDTH 13.7 % (0-14.5); WHITE BLOOD COUNT 8.3 10*3/uL (4.8-10.8)
[2020-06-04 16:00] VITALS: BP 132/66
--- NOTE | 2020-06-04 17:30 | NUR ---
PHYSICAL THERAPY CO-SIGN I approve of the Physical Therapy notes written above. AZALEA FERRARI PT, DPT
--- NOTE | 2020-06-04 19:42 | NUR ---
DR PERKINS NOTIFIED THAT PT PICC LINE IS OKAY TO USE, PER SURGERY NURSE KAILA AND PER CXR. ORDERS OBTAINED TO USE PICC LINE.
[2020-06-04 20:00] VITALS: BP 146/62
[2020-06-05] VITALS: BP 112/56
--- NOTE | 2020-06-05 03:11 | NUR ---
24 HR chart check completed.
--- NOTE | 2020-06-05 06:59 | NUR ---
Reached out to podiatry resident, Dr. Jerry, regarding the need to have the [employer] wound vac paperwork signed by attending. Awaiting return call.
[2020-06-05 07:09] LABS: BUN 17 mg/dl (7-24); CREATININE 1.14 mg/dL (0.70-1.30)
--- NOTE | 2020-06-05 07:25 | NUR ---
PHYSICAL THERAPY Patient seen this am 1:1 for therapy visit and was supine in bed upon therapist arrival. Patient identified by name / and presents with L LE wound vac. Patient reports 2/10 L foot pain and is NWB on L LE, transfering supine to sit EOB, then sit to stand SBA x 1. Patient use of walker standing support, maintaining 100% compliance with NWB status. Patient ambulates 15'x 1 to bathroom, walker, CGA, demonstrating slow, cautious, "bunny hop" linh. Patient ambulated additional 30'x 1, demonstrating LOB x 1 during 180 degree turn around secondary to decreased focus on task. Patient returned to bedside chair near window and remained with call light, cell phone. Will continue per POC as tolerated, total treatment time 17 minutes. Bryon Hyde, INSPECTOR
--- NOTE | 2020-06-05 07:39 | NUR ---
Discussed discharge planning with Dr. Wells. Dr. Wells would like to see if patient would be willing to go to rehab. Patient is not willing to go to rehab. Her concern is when patient goes to [place] for his procedure on Tuesday, he will not get the follow up care he needs. Awaiting wound vac paperwork to be able to send to [facility].
--- NOTE | 2020-06-05 07:40 | NUR ---
OT NOTE Pt was seen this A.M. 1:1 for 20 minute OT session. Upon arrival pt was supine in bed. Pt identified by name and and had complaints of 3/10 L heel pain. Pt presented to therapy with wound vac to LLE which remained in place throughout entire session. Pt was able to self recall and verbalize NWB to LLE. Pt transferred supine to sit EOB independent. While sitting EOB pt donned R sock independent. Sit to stand completed from bed level with SBA for safety and use of w/w for UE support. Functional mobility completed to the bathroom door with SBA and use of w/w, throughout pt required several rest breaks due to complaints of cramping in BLE's. While completing 180 degree turn at the bathroom due pt became impulsive resulting in LOB requiring modA to correct. Functional mobility completed back to the EOB for a seated rest with SBA and use of w/w. Throughout all transfers and mobility this session pt was 100% compliant with NWB to LLE. Pt presented with F- standing balance this session requiring UE support. Functional mobility was then completed to the bedside chair with SBA and use of w/w again requiring verbal prompts to slow down due to being impulsive. Pt was left sitting upright in the bedside chair with call light in hand, tray table in place, and phone in reach. Continue with rec D/C plan to SNF. ANTOINETTE Mathew
--- NOTE | 2020-06-05 07:46 | NUR ---
Spoke to podiatry resident to assist in getting attending signature on wound vac paperwork.
[2020-06-05 07:52] LABS: BASO % 0.3 % (0.0-1.0); EOS # 0.3 10*3/uL (0.0-0.4); EOS % 2.8 % (1.0-4.0); HEMATOCRIT 33.1 % (42.0-52.0); LYMPH # 1.6 10*3/uL (1.3-4.4); LYMPH % 17.8 % (27.0-41.0); MEAN CELL VOLUME 85.8 fl (80.0-94.0); MEAN CORPUSCULAR HGB 26.4 pg (27.0-31.0); MEAN CORPUSCULAR HGB CONC 30.8 g/dl (33.0-37.0); MONO # 0.7 10*3/uL (0.1-1.0); MONO % 7.8 % (3.0-9.0); NEUT # 6.3 10*3/uL (2.3-7.9); PLATELET COUNT AUTOMATED 194 10*3/uL (130-400); RED BLOOD COUNT 3.86 10*6/uL (4.50-5.90)
[2020-06-05 08:00] VITALS: BP 120/57
--- NOTE | 2020-06-05 08:51 | NUR ---
Patient stating he wants to go home with [facility]; Faxed order and clinicals to [facility]. Notified them patient is being discharged to [facility] Tuesday06/09/2020 for an out patient procedure and will most likely go home from there. They've scheduled a visit for Tuesday06/10/2020.
--- NOTE | 2020-06-05 10:20 | NUR ---
JOSEPH FROM [facility] CALLED AND WAS PROVIDED UPDATE ON PATIENT AND INFORMATION FAXED FOR PENDING Tuesday. PT AWARE.
--- NOTE | 2020-06-05 10:48 | NUR ---
Received completed [employer] wound vac paperwork from Dr. Jerry. Faxed signed [employer] form and clinical to [facility]. Awaiting response.
[2020-06-05 12:00] VITALS: BP 126/65
[2020-06-05] MEDS ORDERED: CEFAZOLIN1 G1 IV (12:10)
[2020-06-05] MEDS ORDERED: DOXYCYCLINE100 M3 PO (12:12)
--- NOTE | 2020-06-05 14:00 | NUR ---
[facility] TO DELIVER PUMP SOMETIME TODAY.
[2020-06-05 16:00] VITALS: BP 127/55
[2020-06-05 20:00] VITALS: BP 102/55
--- NOTE | 2020-06-05 23:56 | NUR ---
SCHEDULED NORCO GIVEN AT THIS TIME PER ORDER. WILL MONITOR.
[2020-06-06] VITALS: BP 127/50
--- NOTE | 2020-06-06 02:11 | NUR ---
IV ABX INFUSION INITIATED. PT DENIES ANY NEEDS. WILL MONITOR. CALL LIGHT IN REACH.
--- NOTE | 2020-06-06 02:19 | NUR ---
ICE PACK PROVIDED PER REQUEST.
--- NOTE | 2020-06-06 03:59 | NUR ---
PT ASLEEP IN BED. RESPIRATIONS EASY. NO S/S OF DISTRESS NOTED. WILL MONITOR. CALL LIGHT IN REACH.
--- NOTE | 2020-06-06 06:56 | NUR ---
SPOKE TO REGARDING PLAN OF CARE. QUESTIONED IF PT WAS TO BE DISCHARGED AND GO TO [place] ON HIS OWN TUESDAY. OR IF HE IS TO STAY UNTIL HE IS TRANSFERRED. PT IS TO STAY UNTIL TRANSFER.
[2020-06-06 08:00] VITALS: BP 119/78
[2020-06-06 10:51] LABS: BASO % 0.2 % (0.0-1.0); EOS # 0.2 10*3/uL (0.0-0.4); EOS % 2.7 % (1.0-4.0); LYMPH # 1.5 10*3/uL (1.3-4.4); LYMPH % 17.2 % (27.0-41.0); MEAN CELL VOLUME 87.2 fl (80.0-94.0); MEAN CORPUSCULAR HGB 26.7 pg (27.0-31.0); MEAN CORPUSCULAR HGB CONC 30.6 g/dl (33.0-37.0); MEAN PLATELET VOLUME 11.7 fl (9.6-12.3); MONO # 0.6 10*3/uL (0.1-1.0); MONO % 7.3 % (3.0-9.0); NEUT % 71.4 % (47.0-73.0); PLATELET COUNT AUTOMATED 188 10*3/uL (130-400); RED BLOOD COUNT 3.67 10*6/uL (4.50-5.90); RED CELL DISTRI WIDTH 13.9 % (0-14.5); WHITE BLOOD COUNT 8.4 10*3/uL (4.8-10.8)
[2020-06-06 12:00] VITALS: BP 124/64
[2020-06-06 16:00] VITALS: BP 121/60
[2020-06-06 20:00] VITALS: BP 125/68
--- NOTE | 2020-06-06 20:30 | NUR ---
PT RESTING IN BED, NO COMPLAINTS AT THIS TIME. LUNGS CLR/DIM. DRSG DRY & INTACT TO LEFT FOOT WITH WOUND VAC IN PLACE. PICC LINE PATENT TO RIGHT UPPER ARM. PATIENT HAS NO NEEDS AT THIS TIME. CALL LIGHT IS WITHIN REACH.
[2020-06-07] VITALS: BP 132/67
--- NOTE | 2020-06-07 04:26 | NUR ---
PT ASLEEP WITH NO S/S OF DISTRESS NOTED. CALL LIGHT IS WITHIN REACH.
[2020-06-07 08:00] VITALS: BP 125/68
[2020-06-07 09:22] LABS: BUN 19 mg/dl (7-24); CHLORIDE 100 mmol/L (98-107); CREATININE 1.28 mg/dL (0.70-1.30); POTASSIUM 4.6 mmol/L (3.5-5.1); SODIUM 135 mmol/L (136-145)
--- NOTE | 2020-06-07 10:20 | NUR ---
PHYSICAL THERAPY Patient seen this am 1:1 for therapy visit and was supine in bed upon therapist arrival. Patient identified by name / and presented with L foot wound vac, voicing only mild pain c/o, however did not rate on 0-10 scale. Patient transfers supine to sit EOB with SBA as Nurse arrived with new walker to be provided per d/c planning. Therapist adjusted walker to proper patient height as patient completed sit to stand transfer, CGA and remaines NWB on L LE per physician order. Patient ambulates 25'x 1, wh walker, 3 pt linh, "bunny hop" gait pattern. Patient was 100% compliant with NWB status this session, Fair+ standing balance, with slow, steady gait velocity. Patient returned to EOB sit with mild fatigue, no c/o's pain and remained EOB sit with call light, tray table and telephone. Will continue per POC as tolerated, total treatment time 16 minutes. Bryon Hyde, MONOTYPE CASTER
[2020-06-07 12:00] VITALS: BP 120/70
[2020-06-07 16:00] VITALS: BP 122/64
--- NOTE | 2020-06-07 18:05 | NUR ---
PT RESTING AT THIS TIME, NO COMPLAINTS, PT PROVIDED WITH WALKER PER REQUEST, WALKER IS TO GO WITH PATIENT WHEN HES TRANSFERRED TO [place], ALL PAPERWORK IS COMPLETE AND IN FOLDER FOR SAID WALKER, WOUND VAC CLEAN DRY AND INTACT, PICC LINE CLEAN DRY AND INTACT.
[2020-06-07 20:00] VITALS: BP 113/71
[2020-06-08] VITALS: BP 118/68
--- NOTE | 2020-06-08 01:44 | NUR ---
WOUND VAC ALARMING SEAL LEAKING. DR. MCDANIELS WITH PODIATRY CONTACTED AT THIS TIME. INSTRUCTED TO TAKE OFF DRESSING AND REIENFORCE WOUND VAC, IF UNSUCESSFUL TO TAKE OFF WOUND VAC AND APPLY WET TO DRY DRESSING. THEY WILL SEE IN AM.
--- NOTE | 2020-06-08 02:01 | NUR ---
WOUND VAC CONTAINER CHANGED. SEAL RESTORED. WILL CONTINUE TO MONITOR.
--- NOTE | 2020-06-08 04:25 | NUR ---
PATIENT RESTING WITH NO S/S OF DISTRESS. BED IN LOWEST POSITION, CALL LIGHT IN REACH
[2020-06-08 07:35] LABS: BUN 22 mg/dl (7-24); CHLORIDE 100 mmol/L (98-107); CREATININE 1.09 mg/dL (0.70-1.30); POTASSIUM 4.3 mmol/L (3.5-5.1); SODIUM 136 mmol/L (136-145)
[2020-06-08 08:00] VITALS: BP 132/64
[2020-06-08] MEDS ORDERED: TRAD5TAB1 PO (08:20)
--- NOTE | 2020-06-08 11:49 | NUR ---
MEDICATED WITH STRAIGHT NORCO PER ORDER.
[2020-06-08 12:00] VITALS: BP 124/73
--- NOTE | 2020-06-08 12:19 | NUR ---
DR. JACQUELINE COATSED WOUND VAC TO PATIENT'S OWN FOR DISCHARGE TOMORROW TO [place].
--- NOTE | 2020-06-08 15:30 | NUR ---
MEDICATED WITH PRN FLEXERIL.
[2020-06-08 16:00] VITALS: BP 146/66
--- NOTE | 2020-06-08 17:58 | NUR ---
PATIENT IS REFUSING AMBULANCE, SO HIS WILL MANAGER GYN AT 6AM 06/09 AND TAKE TO [place].
--- NOTE | 2020-06-08 19:00 | NUR ---
REPORT RECEIVED. PT LYING IN BED WITH EYES CLOSED. WOUND VAC IN PLACE. RESPIRATIONS EASY. CALL LIGHT IN REACH
[2020-06-08 20:00] VITALS: BP 123/77
--- NOTE | 2020-06-08 20:05 | NUR ---
IN TO ASSESS PATIENT. DURING ASSESSMENT PT STATES "I'VE BEEN HAVING A HARD TIME SLEEPING BECAUSE OF MY FOOT. I'D REALLY RATHER YOU LEAVE ME ALONE. EVERYONE HAS LEFT ME ALONE TODAY." PT EDUCATED ON IMPORTANCE OF ASSESSMENTS, WELL BLOOD SUGAR CHECKS. PT STATES "I DONT WANT MY FINGER POKED AND I DONT CARE TO HAVE MY MEDICATIONS. JUST LEAVE ME ALONE." PT CALL LIGHT IN REACH, LIGHTS OFF. DOOR SHUT PER REQUEST.
[2020-06-09] VITALS: BP 116/74
--- NOTE | 2020-06-09 00:16 | NUR ---
SCHEDULED NORCO GIVEN FOR PAIN IN LEFT FOOT. WILL MONITOR
--- NOTE | 2020-06-09 01:06 | NUR ---
NORCO EFFECTIVE, PT ASLEEP
--- NOTE | 2020-06-09 02:54 | NUR ---
DR. BENJA AGUAYO OF PT ELEVATED HR 110-120'S. ALSO NOTIFIED OF LOW GRADE FEVER 99.6. ONE TIME PO DOSE OF TYLENOL 500MG ORDERED AT THIS TIME.
--- NOTE | 2020-06-09 03:20 | NUR ---
24 HR chart check completed.
--- NOTE | 2020-06-09 06:00 | NUR ---
Discharge instructions reviewed with patient/family. Patient receptive and verbalizes understanding. Follow-up care arranged. Written instructions given to patient/family. PAULINE HUSSEIN
--- NOTE | 2020-06-09 07:33 | NUR ---
PHYSICAL THERAPY CO-SIGN I approve of the Physical Therapy notes written above. AZALEA FERRARI PT, DPT
--- NOTE | 2020-06-09 07:42 | NUR ---
OCCUPATIONAL THERAPY CO-SIGN I approve of the Occupational Therapy notes written above. ROMINA GARNICA, OTR/L
--- NOTE | 2020-06-09 08:37 | NUR ---
Spoke with Dr. Wells this morning regarding no script for IV antibiotics. Dr. Wells faxed script; this was faxed to Caleb at [facility] [phone]. [facility] [employer] phone is [phone]. Patient already set up with [facility].
--- NOTE | 2020-06-09 08:58 | NUR ---
Contacted [facility]; They are stating they have approved and released the wound vac, however they are still waiting on approval from the patients insurance.
== END 2020-06-09 06:46 | disposition home or self-care (01) | DRG 853 ==
LOC: ED 13:43 → 5E 18:09 → EDHOLD 18:09 → 5E 05-31 09:50
PROVIDERS: Emergency Medicine; Internal Medicine; Podiatrist; ADMIT Internal Medicine; ATTEND Internal Medicine
PROC: 0QBM0ZZ Excision of Left Tarsal, Open Approach (ICD-10-PCS; principal; 2020-05-31)
PROC: 02HV33Z Insertion of Infusion Device into Superior Vena Cava, Percutaneous Approach (ICD-10-PCS; 2020-06-04)
DX: A40.8 Other streptococcal sepsis (principal); E43 Unspecified severe protein-calorie malnutrition; A48.0 Gas gangrene; L97.424 Non-pressure chronic ulcer of left heel and midfoot with necrosis of bone; N17.9 Acute kidney failure, unspecified; L03.116 Cellulitis of left lower limb; I48.21 Permanent atrial fibrillation; F33.1 Major depressive disorder, recurrent, moderate; E11.52 Type 2 diabetes mellitus with diabetic peripheral angiopathy with gangrene; J96.10 Chronic respiratory failure, unspecified whether with hypoxia or hypercapnia; R65.20 Severe sepsis without septic shock; Z20.828 Contact with and (suspected) exposure to other viral communicable diseases; E11.51 Type 2 diabetes mellitus with diabetic peripheral angiopathy without gangrene; E78.2 Mixed hyperlipidemia; F17.210 Nicotine dependence, cigarettes, uncomplicated; E11.22 Type 2 diabetes mellitus with diabetic chronic kidney disease; R62.7 Adult failure to thrive; N18.30 Chronic kidney disease, stage 3 unspecified; I12.9 Hypertensive chronic kidney disease with stage 1 through stage 4 chronic kidney disease, or unspecified chronic kidney disease; E11.42 Type 2 diabetes mellitus with diabetic polyneuropathy; E11.621 Type 2 diabetes mellitus with foot ulcer; Z68.31 Body mass index [BMI] 31.0-31.9, adult; Z79.899 Other long term (current) drug therapy; Z79.1 Long term (current) use of non-steroidal anti-inflammatories (NSAID); Z86.73 Personal history of transient ischemic attack (TIA), and cerebral infarction without residual deficits; Z91.19 Patient's noncompliance with other medical treatment and regimen

== ENCOUNTER → 2020-07-12 | Outpatient (CLI) | payer OTHER ==
[~2020-07-12] MED LIST changes: +CALCIUM ACETAT667 MG PO; +CEFAZOLIN1 G1 IV; +CEFEPIME2 GM/100 M IV; -CYMBALTA20 M1 PO; +CYMBALTA30 MG PO; +DIGOXIN125 MCG PO; +FAMOTIDINE20 M1 PO; +SPS 15 GM/15 GM/60 M PO; +TRAD5TAB1 PO
== END | disposition home or self-care (01) ==
LOC: COVID19 15:34
DX: Z01.812 Encounter for preprocedural laboratory examination (principal); Z20.822 Contact with and (suspected) exposure to COVID-19

== ENCOUNTER → 2020-07-29 | Outpatient (CLI) | payer OTHER | END | disposition home or self-care (01) | LOC: COVID19 14:57 | PROVIDERS: ATTEND Surgery Vascular Surgery | DX: Z01.812 Encounter for preprocedural laboratory examination (principal); Z20.822 Contact with and (suspected) exposure to COVID-19 ==

== ENCOUNTER → 2020-08-29 | Outpatient (CLI) | payer OTHER | END | disposition home or self-care (01) | LOC: COVID19 12:47 | PROVIDERS: ATTEND Podiatrist Foot & Ankle Surgery | DX: Z01.818 Encounter for other preprocedural examination (principal); Z20.822 Contact with and (suspected) exposure to COVID-19 ==

== ENCOUNTER 2020-09-03 08:36 | Inpatient (IN) | payer OTHER ==
[2020-09-03] VITALS (14 sets, daily range): BP systolic 89–141; BP diastolic 38–78
[~2020-09-03] VITALS: Ht 182.9 cm; Wt 107.8 kg
[~2020-09-03 08:36] MED LIST changes: -CALCIUM ACETAT667 MG PO; -CEFEPIME2 GM/100 M IV; -SPS 15 GM/15 GM/60 M PO
[2020-09-03 09:04] LABS: BASO % 0.2 % (0.0-1.0); EOS # 0.1 10*3/uL (0.0-0.4); EOS % 0.5 % (1.0-4.0); HEMATOCRIT 38.6 % (42.0-52.0); LYMPH # 1.7 10*3/uL (1.3-4.4); LYMPH % 13.1 % (27.0-41.0); MEAN CELL VOLUME 75.5 fl (80.0-94.0); MEAN CORPUSCULAR HGB 22.3 pg (27.0-31.0); MEAN CORPUSCULAR HGB CONC 29.5 g/dl (33.0-37.0); MEAN PLATELET VOLUME 10.8 fl (9.6-12.3); MONO # 1.4 10*3/uL (0.1-1.0); MONO % 11.1 % (3.0-9.0); NEUT # 9.4 10*3/uL (2.3-7.9); NEUT % 74.3 % (47.0-73.0); PLATELET COUNT AUTOMATED 268 10*3/uL (130-400); RED BLOOD COUNT 5.11 10*6/uL (4.50-5.90); RED CELL DISTRI WIDTH 15.6 % (0-14.5); WHITE BLOOD COUNT 12.7 10*3/uL (4.8-10.8)
[2020-09-03 09:15] LABS: ACT PARTIAL THROMBO TIME 29.7 SECONDS (20.0-32.1); INTERNATIONAL NORM RATIO 1.1 (2.0-3.5)
[2020-09-03 09:21] LABS: ALBUMIN 1.8 gm/dl (3.1-4.5); ALKALINE PHOSPHATASE 105 U/L (45-117); BUN 11 mg/dl (7-24); CHLORIDE 100 mmol/L (98-107); POTASSIUM 3.8 mmol/L (3.5-5.1); SGPT/ALT 10 U/L (12-78); SODIUM 134 mmol/L (136-145); TOTAL PROTEIN 6.9 gm/dL (6.4-8.2)
[2020-09-03 09:24] LABS: SGOT/AST < 3 IU/L (3-35); TROPONIN I < 0.015 ng/ml (<0.045)
[2020-09-03 11:55] LABS: BILIRUBIN Negative (Negative); BLOOD Negative (Negative); CLARITY Clear (Clear); COLOR Yellow (Yellow); GLUCOSE 2+ (Negative); KETONE Negative (Negative); LEUKO ESTERASE Negative (Negative); NITRITE Negative (Negative); PH 7.5 (4.5-8.0); SPECIFIC GRAVITY 1.015 (1.001-1.030); UROBILINOGEN 0.2 E.U./dl (0.0-1.0)
[2020-09-03 12:12] LABS: BACTERIA 1+
[2020-09-04] VITALS (9 sets, daily range): BP systolic 98–154; BP diastolic 37–82
[2020-09-04 05:57] LABS: ALBUMIN 1.6 gm/dl (3.1-4.5); ALKALINE PHOSPHATASE 81 U/L (45-117); BUN 8 mg/dl (7-24); CHLORIDE 108 mmol/L (98-107); CREATININE 0.78 mg/dL (0.70-1.30); POTASSIUM 3.5 mmol/L (3.5-5.1); SGPT/ALT 7 U/L (12-78); SODIUM 138 mmol/L (136-145); TOTAL PROTEIN 5.9 gm/dL (6.4-8.2)
[2020-09-04 05:58] LABS: SGOT/AST < 3 IU/L (3-35)
[2020-09-04 06:10] LABS: BASO % 0.3 % (0.0-1.0); EOS # 0.2 10*3/uL (0.0-0.4); EOS % 1.4 % (1.0-4.0); HEMATOCRIT 28.1 % (42.0-52.0); LYMPH % 16.7 % (27.0-41.0); MEAN CELL VOLUME 76.6 fl (80.0-94.0); MEAN CORPUSCULAR HGB 22.3 pg (27.0-31.0); MEAN CORPUSCULAR HGB CONC 29.2 g/dl (33.0-37.0); MEAN PLATELET VOLUME 11.3 fl (9.6-12.3); MONO # 1.3 10*3/uL (0.1-1.0); MONO % 10.5 % (3.0-9.0); NEUT # 8.5 10*3/uL (2.3-7.9); NEUT % 70.4 % (47.0-73.0); PLATELET COUNT AUTOMATED 230 10*3/uL (130-400); RED BLOOD COUNT 3.67 10*6/uL (4.50-5.90); RED CELL DISTRI WIDTH 15.9 % (0-14.5); WHITE BLOOD COUNT 12.1 10*3/uL (4.8-10.8)
[2020-09-05] VITALS (8 sets, daily range): BP systolic 97–138; BP diastolic 50–86
[2020-09-05 06:25] LABS: BASO % 0.2 % (0.0-1.0); EOS # 0.2 10*3/uL (0.0-0.4); EOS % 2.7 % (1.0-4.0); HEMATOCRIT 24.7 % (42.0-52.0); LYMPH # 1.3 10*3/uL (1.3-4.4); LYMPH % 15.2 % (27.0-41.0); MEAN CELL VOLUME 78.2 fl (80.0-94.0); MEAN CORPUSCULAR HGB 22.5 pg (27.0-31.0); MEAN CORPUSCULAR HGB CONC 28.7 g/dl (33.0-37.0); MEAN PLATELET VOLUME 11.5 fl (9.6-12.3); MONO # 0.9 10*3/uL (0.1-1.0); MONO % 10.5 % (3.0-9.0); NEUT % 70.7 % (47.0-73.0); PLATELET COUNT AUTOMATED 193 10*3/uL (130-400); RED BLOOD COUNT 3.16 10*6/uL (4.50-5.90); RED CELL DISTRI WIDTH 15.6 % (0-14.5); WHITE BLOOD COUNT 8.5 10*3/uL (4.8-10.8)
[2020-09-05 06:42] LABS: POTASSIUM 3.6 mmol/L (3.5-5.1)
[2020-09-05 06:50] LABS: CREATININE 1.98 mg/dL (0.70-1.30)
[2020-09-06] VITALS: BP 112/67
[2020-09-06 04:00] VITALS: BP 119/60
[2020-09-06 05:37] LABS: CREATININE 3.55 mg/dL (0.70-1.30); POTASSIUM 3.8 mmol/L (3.5-5.1)
[2020-09-06 06:12] LABS: MEAN CELL VOLUME 79.1 fl (80.0-94.0); MEAN CORPUSCULAR HGB 21.8 pg (27.0-31.0); MEAN CORPUSCULAR HGB CONC 27.6 g/dl (33.0-37.0); MEAN PLATELET VOLUME 11.7 fl (9.6-12.3); PLATELET COUNT AUTOMATED 195 10*3/uL (130-400); RED BLOOD COUNT 3.16 10*6/uL (4.50-5.90); RED CELL DISTRI WIDTH 15.8 % (0-14.5); WHITE BLOOD COUNT 11.4 10*3/uL (4.8-10.8)
[2020-09-06 06:54] LABS: BURR CELLS FEW; MICROCYTOSIS SLIGHT; OVALOCYTES FEW; PLATELET SUFFICIENCY NORMAL (NORMAL); TOTAL CELLS COUNTED 100 #CELLS; TOXIC GRANULATION SLIGHT
[2020-09-06 08:00] VITALS: BP 104/60
[2020-09-06 12:00] VITALS: BP 98/53
[2020-09-06 14:07] LABS: ACID FAST SPEC PROCESSING Tissue Grinding (.)
[2020-09-06 14:07] LABS: ACID FAST SPEC PROCESSING Tissue Grinding (.)
[2020-09-06 14:07] LABS: ACID FAST SPEC PROCESSING Tissue Grinding (.)
[2020-09-06 14:07] LABS: ACID FAST SPEC PROCESSING Tissue Grinding (.)
[2020-09-06 16:00] VITALS: BP 111/67
[2020-09-06 17:25] LABS: BILIRUBIN Negative (Negative); BLOOD Negative (Negative); CLARITY Clear (Clear); COLOR Yellow (Yellow); GLUCOSE Negative (Negative); KETONE Negative (Negative); LEUKO ESTERASE Negative (Negative); NITRITE Negative (Negative); SPECIFIC GRAVITY <= 1.005 (1.001-1.030); UROBILINOGEN 0.2 E.U./dl (0.0-1.0)
[2020-09-06 17:30] LABS: EPITHELIAL CELLS 0-2; RBC 0-2 rbc/hpf (0-2)
[2020-09-06 17:31] LABS: BACTERIA TRACE
[2020-09-06 20:00] VITALS: BP 124/46
[2020-09-07] VITALS (18 sets, daily range): BP systolic 96–145; BP diastolic 45–99
[2020-09-07 06:32] LABS: HEMATOCRIT 21.5 % (42.0-52.0); MEAN CORPUSCULAR HGB 22.4 pg (27.0-31.0); MEAN CORPUSCULAR HGB CONC 28.4 g/dl (33.0-37.0); MEAN PLATELET VOLUME 11.4 fl (9.6-12.3); PLATELET COUNT AUTOMATED 174 10*3/uL (130-400); RED BLOOD COUNT 2.72 10*6/uL (4.50-5.90); WHITE BLOOD COUNT 10.7 10*3/uL (4.8-10.8)
[2020-09-07 06:45] LABS: CREATININE 4.36 mg/dL (0.70-1.30); POTASSIUM 3.9 mmol/L (3.5-5.1)
[2020-09-07 07:10] LABS: TOTAL CELLS COUNTED 100 #CELLS
[2020-09-07 07:11] LABS: BURR CELLS FEW; MICROCYTOSIS SLIGHT; OVALOCYTES FEW; PLATELET SUFFICIENCY NORMAL (NORMAL); TOXIC GRANULATION SLIGHT
[2020-09-08] VITALS: BP 119/74
[2020-09-08 06:40] LABS: BASO % 0.2 % (0.0-1.0); EOS # 0.2 10*3/uL (0.0-0.4); EOS % 1.7 % (1.0-4.0); HEMATOCRIT 24.8 % (42.0-52.0); LYMPH # 1.2 10*3/uL (1.3-4.4); LYMPH % 12.4 % (27.0-41.0); MEAN CELL VOLUME 81.6 fl (80.0-94.0); MEAN CORPUSCULAR HGB CONC 29.4 g/dl (33.0-37.0); MEAN PLATELET VOLUME 10.9 fl (9.6-12.3); MONO % 10.3 % (3.0-9.0); NEUT # 6.9 10*3/uL (2.3-7.9); NEUT % 74.5 % (47.0-73.0); PLATELET COUNT AUTOMATED 160 10*3/uL (130-400); RED BLOOD COUNT 3.04 10*6/uL (4.50-5.90); RED CELL DISTRI WIDTH 17.7 % (0-14.5); WHITE BLOOD COUNT 9.3 10*3/uL (4.8-10.8)
[2020-09-08 06:59] LABS: ALBUMIN 1.4 gm/dl (3.1-4.5); BUN 37 mg/dl (7-24); CHLORIDE 109 mmol/L (98-107); POTASSIUM 4.1 mmol/L (3.5-5.1); SGOT/AST 4 IU/L (3-35); SODIUM 137 mmol/L (136-145)
[2020-09-08 07:02] LABS: ALKALINE PHOSPHATASE 70 U/L (45-117); CREATININE 5.04 mg/dL (0.70-1.30); TOTAL PROTEIN 5.1 gm/dL (6.4-8.2)
[2020-09-08 07:05] LABS: SGPT/ALT < 6 U/L (12-78)
[2020-09-08 08:15] VITALS: BP 120/80
[2020-09-08 12:00] VITALS: BP 130/70
[2020-09-08 16:00] VITALS: BP 151/56
[2020-09-08 20:00] VITALS: BP 132/76
[2020-09-09] VITALS: BP 133/80
[2020-09-09 08:00] VITALS: BP 134/80
[2020-09-09 09:06] LABS: BASO % 0.2 % (0.0-1.0); EOS # 0.3 10*3/uL (0.0-0.4); EOS % 2.9 % (1.0-4.0); HEMATOCRIT 26.1 % (42.0-52.0); LYMPH # 1.6 10*3/uL (1.3-4.4); LYMPH % 17.2 % (27.0-41.0); MEAN CELL VOLUME 80.3 fl (80.0-94.0); MEAN CORPUSCULAR HGB 24.3 pg (27.0-31.0); MEAN CORPUSCULAR HGB CONC 30.3 g/dl (33.0-37.0); MEAN PLATELET VOLUME 11.1 fl (9.6-12.3); MONO # 0.9 10*3/uL (0.1-1.0); MONO % 10.3 % (3.0-9.0); NEUT # 6.2 10*3/uL (2.3-7.9); NEUT % 68.4 % (47.0-73.0); PLATELET COUNT AUTOMATED 183 10*3/uL (130-400); RED BLOOD COUNT 3.25 10*6/uL (4.50-5.90); RED CELL DISTRI WIDTH 17.7 % (0-14.5); WHITE BLOOD COUNT 9.1 10*3/uL (4.8-10.8)
[2020-09-09 09:31] LABS: CREATININE 5.67 mg/dL (0.70-1.30); POTASSIUM 4.4 mmol/L (3.5-5.1)
[2020-09-09 12:00] VITALS: BP 110/55
[2020-09-09 16:00] VITALS: BP 125/63
[2020-09-09 20:00] VITALS: BP 120/81
[2020-09-10] VITALS: BP 110/79; BP 119/73
[2020-09-10 06:36] LABS: CREATININE 5.7 mg/dL (0.70-1.30); POTASSIUM 4.7 mmol/L (3.5-5.1)
[2020-09-10 08:00] VITALS: BP 118/60
[2020-09-10 09:00] LABS: BASO % 0.2 % (0.0-1.0); EOS # 0.2 10*3/uL (0.0-0.4); EOS % 2.1 % (1.0-4.0); HEMATOCRIT 26.2 % (42.0-52.0); LYMPH # 1.3 10*3/uL (1.3-4.4); LYMPH % 15.9 % (27.0-41.0); MEAN CELL VOLUME 80.9 fl (80.0-94.0); MEAN CORPUSCULAR HGB 23.8 pg (27.0-31.0); MEAN CORPUSCULAR HGB CONC 29.4 g/dl (33.0-37.0); MEAN PLATELET VOLUME 11.8 fl (9.6-12.3); MONO # 0.8 10*3/uL (0.1-1.0); MONO % 10.3 % (3.0-9.0); NEUT # 5.8 10*3/uL (2.3-7.9); NEUT % 70.4 % (47.0-73.0); PLATELET COUNT AUTOMATED 182 10*3/uL (130-400); RED BLOOD COUNT 3.24 10*6/uL (4.50-5.90); RED CELL DISTRI WIDTH 17.9 % (0-14.5); WHITE BLOOD COUNT 8.2 10*3/uL (4.8-10.8)
[2020-09-10 12:03] VITALS: BP 112/68
[2020-09-10 16:00] VITALS: BP 112/59
[2020-09-10 20:00] VITALS: BP 132/72
[2020-09-11] VITALS: BP 132/70
[2020-09-11] MEDS ORDERED: ELIQUIS5 M1 PO (06:27)
[2020-09-11 06:31] LABS: BASO % 0.3 % (0.0-1.0); EOS # 0.3 10*3/uL (0.0-0.4); EOS % 3.5 % (1.0-4.0); HEMATOCRIT 26.4 % (42.0-52.0); LYMPH # 1.8 10*3/uL (1.3-4.4); LYMPH % 25.4 % (27.0-41.0); MEAN CELL VOLUME 81.2 fl (80.0-94.0); MEAN CORPUSCULAR HGB CONC 29.5 g/dl (33.0-37.0); MEAN PLATELET VOLUME 11.9 fl (9.6-12.3); MONO # 0.8 10*3/uL (0.1-1.0); MONO % 11.6 % (3.0-9.0); NEUT # 4.1 10*3/uL (2.3-7.9); NEUT % 57.9 % (47.0-73.0); PLATELET COUNT AUTOMATED 184 10*3/uL (130-400); RED BLOOD COUNT 3.25 10*6/uL (4.50-5.90); RED CELL DISTRI WIDTH 18.1 % (0-14.5); WHITE BLOOD COUNT 7.1 10*3/uL (4.8-10.8)
[2020-09-11 06:43] LABS: CREATININE 5.59 mg/dL (0.70-1.30)
[2020-09-11 08:00] VITALS: BP 119/60
[2020-09-11 12:00] VITALS: BP 121/89
[2020-09-11 16:00] VITALS: BP 140/82
[2020-09-11] MEDS ORDERED: SPS 15 GM/15 GM/60 M PO (16:12)
[2020-09-11] MEDS ORDERED: CALCIUM ACETAT667 MG PO (16:12)
[2020-09-11 16:35] LABS: CREATININE 5.57 mg/dL (0.70-1.30)
[2020-09-11 20:00] VITALS: BP 131/83
[2020-09-12] VITALS: BP 141/91
[2020-09-12 06:55] LABS: CREATININE 5.12 mg/dL (0.70-1.30); POTASSIUM 4.6 mmol/L (3.5-5.1)
[2020-09-12 08:00] VITALS: BP 150/73
== END 2020-09-12 11:40 | disposition home health service (06) | DRG 853 ==
LOC: ED 08:36 → ICCU 10:38 → EDHOLD 10:38 → ICCU 10:49 → 4E 09-07 16:23
PROVIDERS: Emergency Medicine; Family Medicine; Internal Medicine; Internal Medicine Nephrology; Podiatrist; ADMIT Internal Medicine; ATTEND Internal Medicine
PROC: 02HV33Z Insertion of Infusion Device into Superior Vena Cava, Percutaneous Approach (ICD-10-PCS; 2020-09-05)
PROC: 30233N1 Transfusion of Nonautologous Red Blood Cells into Peripheral Vein, Percutaneous Approach (ICD-10-PCS; 2020-09-07)
PROC: 0QBK0ZZ Excision of Left Fibula, Open Approach (ICD-10-PCS; principal; 2020-09-10)
PROC: 0QBM0ZZ Excision of Left Tarsal, Open Approach (ICD-10-PCS; 2020-09-10)
PROC: 0QSM0ZZ Reposition Left Tarsal, Open Approach (ICD-10-PCS; 2020-09-10)
DX: A40.8 Other streptococcal sepsis (principal); M72.6 Necrotizing fasciitis; N17.0 Acute kidney failure with tubular necrosis; J18.9 Pneumonia, unspecified organism; M00.072 Staphylococcal arthritis, left ankle and foot; E44.0 Moderate protein-calorie malnutrition; I48.21 Permanent atrial fibrillation; I48.92 Unspecified atrial flutter; M00.9 Pyogenic arthritis, unspecified; M86.8X7 Other osteomyelitis, ankle and foot; D62 Acute posthemorrhagic anemia; E11.65 Type 2 diabetes mellitus with hyperglycemia; G89.29 Other chronic pain; M54.5 Low back pain; D63.8 Anemia in other chronic diseases classified elsewhere; I95.9 Hypotension, unspecified; E78.2 Mixed hyperlipidemia; E11.51 Type 2 diabetes mellitus with diabetic peripheral angiopathy without gangrene; M25.372 Other instability, left ankle; E11.69 Type 2 diabetes mellitus with other specified complication; E11.42 Type 2 diabetes mellitus with diabetic polyneuropathy; E11.621 Type 2 diabetes mellitus with foot ulcer; R62.7 Adult failure to thrive; E88.09 Other disorders of plasma-protein metabolism, not elsewhere classified; E83.39 Other disorders of phosphorus metabolism; Z20.822 Contact with and (suspected) exposure to COVID-19; L89.629 Pressure ulcer of left heel, unspecified stage; N18.9 Chronic kidney disease, unspecified; Z83.3 Family history of diabetes mellitus; Z82.49 Family history of ischemic heart disease and other diseases of the circulatory system; Z79.01 Long term (current) use of anticoagulants; Z91.19 Patient's noncompliance with other medical treatment and regimen; Z68.32 Body mass index [BMI] 32.0-32.9, adult; E11.22 Type 2 diabetes mellitus with diabetic chronic kidney disease

== ENCOUNTER 2020-09-15 16:37 | Emergency (ER) | payer OTHER ==
[~2020-09-15] VITALS: Ht 182.8 cm; Wt 108.9 kg
[~2020-09-15 16:37] MED LIST changes: +CALCIUM ACETAT667 MG PO; +SPS 15 GM/15 GM/60 M PO
[2020-09-15 17:19] LABS: BASO % 0.2 % (0.0-1.0); EOS # 0.6 10*3/uL (0.0-0.4); EOS % 4.5 % (1.0-4.0); HEMATOCRIT 28.9 % (42.0-52.0); LYMPH # 1.8 10*3/uL (1.3-4.4); LYMPH % 13.5 % (27.0-41.0); MEAN CELL VOLUME 80.5 fl (80.0-94.0); MEAN CORPUSCULAR HGB 23.7 pg (27.0-31.0); MEAN CORPUSCULAR HGB CONC 29.4 g/dl (33.0-37.0); MEAN PLATELET VOLUME 11.8 fl (9.6-12.3); MONO # 0.6 10*3/uL (0.1-1.0); MONO % 4.8 % (3.0-9.0); NEUT % 76.2 % (47.0-73.0); PLATELET COUNT AUTOMATED 183 10*3/uL (130-400); RED BLOOD COUNT 3.59 10*6/uL (4.50-5.90); RED CELL DISTRI WIDTH 18.5 % (0-14.5); WHITE BLOOD COUNT 13.1 10*3/uL (4.8-10.8)
[2020-09-15 17:34] LABS: ALBUMIN 2.1 gm/dl (3.1-4.5); ALKALINE PHOSPHATASE 71 U/L (45-117); BUN 38 mg/dl (7-24); CHLORIDE 107 mmol/L (98-107); CREATININE 3.03 mg/dL (0.70-1.30); LIPASE 87 U/L (73-393); POTASSIUM 4.4 mmol/L (3.5-5.1); SGOT/AST 4 IU/L (3-35); SGPT/ALT 10 U/L (12-78); SODIUM 138 mmol/L (136-145); TOTAL PROTEIN 6.9 gm/dL (6.4-8.2)
[2020-09-15 17:35] LABS: TROPONIN I < 0.015 ng/ml (<0.045)
[2020-09-15 17:42] LABS: INTERNATIONAL NORM RATIO 1.1 (2.0-3.5)
== END 2020-09-15 20:20 | disposition home or self-care (01) ==
LOC: ED 16:37
PROVIDERS: Emergency Medicine
DX: Z48.01 Encounter for change or removal of surgical wound dressing (principal); M79.672 Pain in left foot; F17.200 Nicotine dependence, unspecified, uncomplicated; Z79.899 Other long term (current) drug therapy; Z79.4 Long term (current) use of insulin; Z98.890 Other specified postprocedural states

== ENCOUNTER 2020-10-03 12:21 | Emergency (ER) | payer OTHER ==
[~2020-10-03] VITALS: Wt 127.0 kg
[2020-10-03 13:12] LABS: BASO # 0.1 10*3/uL (0.0-0.1); BASO % 0.3 % (0.0-1.0); EOS # 0.1 10*3/uL (0.0-0.4); EOS % 0.8 % (1.0-4.0); HEMATOCRIT 35.4 % (42.0-52.0); LYMPH # 1.3 10*3/uL (1.3-4.4); LYMPH % 8.7 % (27.0-41.0); MEAN CELL VOLUME 78.3 fl (80.0-94.0); MEAN CORPUSCULAR HGB 23.9 pg (27.0-31.0); MEAN CORPUSCULAR HGB CONC 30.5 g/dl (33.0-37.0); MEAN PLATELET VOLUME 11.9 fl (9.6-12.3); MONO # 1.1 10*3/uL (0.1-1.0); MONO % 7.6 % (3.0-9.0); NEUT # 11.8 10*3/uL (2.3-7.9); NEUT % 81.6 % (47.0-73.0); PLATELET COUNT AUTOMATED 212 10*3/uL (130-400); RED BLOOD COUNT 4.52 10*6/uL (4.50-5.90); RED CELL DISTRI WIDTH 18.5 % (0-14.5); WHITE BLOOD COUNT 14.5 10*3/uL (4.8-10.8)
[2020-10-03 13:21] LABS: ACT PARTIAL THROMBO TIME 27.8 SECONDS (20.0-32.1); INTERNATIONAL NORM RATIO 1.1 (2.0-3.5)
[2020-10-03 13:29] LABS: ALBUMIN 2.7 gm/dl (3.1-4.5); ALKALINE PHOSPHATASE 101 U/L (45-117); BUN 21 mg/dl (7-24); CHLORIDE 99 mmol/L (98-107); CPK 26 U/L (39-308); CREATININE 1.34 mg/dL (0.70-1.30); POTASSIUM 3.4 mmol/L (3.5-5.1); SGOT/AST 7 IU/L (3-35); SGPT/ALT 11 U/L (12-78); SODIUM 132 mmol/L (136-145); TOTAL PROTEIN 7.7 gm/dL (6.4-8.2)
[2020-10-03 13:30] LABS: TROPONIN I < 0.015 ng/ml (<0.045)
== END 2020-10-03 16:19 | disposition home or self-care (01) ==
LOC: ED 12:21
PROVIDERS: Emergency Medicine
DX: R11.2 Nausea with vomiting, unspecified (principal); M86.9 Osteomyelitis, unspecified; Z79.899 Other long term (current) drug therapy; Z79.4 Long term (current) use of insulin; Z95.818 Presence of other cardiac implants and grafts; Z98.890 Other specified postprocedural states

== ENCOUNTER 2020-10-05 16:04 | Inpatient (IN) | payer OTHER ==
[~2020-10-05] VITALS: Ht 182.8 cm; Wt 103.1 kg
[2020-10-05 16:25] VITALS: BP 122/63
[2020-10-05 17:06] LABS: BASO # 0.1 10*3/uL (0.0-0.1); BASO % 0.6 % (0.0-1.0); EOS # 0.7 10*3/uL (0.0-0.4); EOS % 6.6 % (1.0-4.0); HEMATOCRIT 34.1 % (42.0-52.0); LYMPH # 1.9 10*3/uL (1.3-4.4); LYMPH % 17.3 % (27.0-41.0); MEAN CELL VOLUME 81.6 fl (80.0-94.0); MEAN CORPUSCULAR HGB 24.2 pg (27.0-31.0); MEAN CORPUSCULAR HGB CONC 29.6 g/dl (33.0-37.0); MEAN PLATELET VOLUME 12.4 fl (9.6-12.3); MONO # 0.8 10*3/uL (0.1-1.0); MONO % 7.5 % (3.0-9.0); NEUT # 7.3 10*3/uL (2.3-7.9); PLATELET COUNT AUTOMATED 183 10*3/uL (130-400); RED BLOOD COUNT 4.18 10*6/uL (4.50-5.90); WHITE BLOOD COUNT 10.9 10*3/uL (4.8-10.8)
[2020-10-05 17:20] LABS: ALBUMIN 2.7 gm/dl (3.1-4.5); ALKALINE PHOSPHATASE 104 U/L (45-117); BUN 20 mg/dl (7-24); CHLORIDE 103 mmol/L (98-107); CREATININE 1.34 mg/dL (0.70-1.30); POTASSIUM 3.5 mmol/L (3.5-5.1); SGOT/AST 7 IU/L (3-35); SGPT/ALT 12 U/L (12-78); SODIUM 135 mmol/L (136-145); TOTAL PROTEIN 7.1 gm/dL (6.4-8.2)
[2020-10-06 00:45] VITALS: BP 145/61
[2020-10-06 07:50] VITALS: BP 130/62
[2020-10-06 08:00] VITALS: BP 148/64
[2020-10-06 11:35] LABS: BASO % 0.4 % (0.0-1.0); EOS # 0.5 10*3/uL (0.0-0.4); EOS % 6.9 % (1.0-4.0); HEMATOCRIT 27.8 % (42.0-52.0); LYMPH # 1.5 10*3/uL (1.3-4.4); LYMPH % 22.4 % (27.0-41.0); MEAN CELL VOLUME 82.5 fl (80.0-94.0); MEAN CORPUSCULAR HGB 23.7 pg (27.0-31.0); MEAN CORPUSCULAR HGB CONC 28.8 g/dl (33.0-37.0); MEAN PLATELET VOLUME 12.5 fl (9.6-12.3); MONO # 0.7 10*3/uL (0.1-1.0); MONO % 10.2 % (3.0-9.0); NEUT # 4.1 10*3/uL (2.3-7.9); NEUT % 59.4 % (47.0-73.0); PLATELET COUNT AUTOMATED 129 10*3/uL (130-400); RED BLOOD COUNT 3.37 10*6/uL (4.50-5.90); RED CELL DISTRI WIDTH 17.7 % (0-14.5); WHITE BLOOD COUNT 6.9 10*3/uL (4.8-10.8)
[2020-10-06 12:00] VITALS: BP 123/63; BP 150/66
[2020-10-06 16:00] VITALS: BP 137/74
[2020-10-06 20:00] VITALS: BP 151/62
[2020-10-07] VITALS: BP 148/66
[2020-10-07 06:50] LABS: BASO % 0.5 % (0.0-1.0); EOS # 0.4 10*3/uL (0.0-0.4); EOS % 5.9 % (1.0-4.0); HEMATOCRIT 31.1 % (42.0-52.0); LYMPH # 1.4 10*3/uL (1.3-4.4); LYMPH % 22.8 % (27.0-41.0); MEAN CELL VOLUME 81.4 fl (80.0-94.0); MEAN CORPUSCULAR HGB 23.8 pg (27.0-31.0); MEAN CORPUSCULAR HGB CONC 29.3 g/dl (33.0-37.0); MEAN PLATELET VOLUME 11.2 fl (9.6-12.3); MONO # 0.6 10*3/uL (0.1-1.0); MONO % 9.3 % (3.0-9.0); NEUT # 3.8 10*3/uL (2.3-7.9); NEUT % 60.2 % (47.0-73.0); PLATELET COUNT AUTOMATED 132 10*3/uL (130-400); RED BLOOD COUNT 3.82 10*6/uL (4.50-5.90); RED CELL DISTRI WIDTH 17.4 % (0-14.5); WHITE BLOOD COUNT 6.3 10*3/uL (4.8-10.8)
[2020-10-07 06:57] LABS: ACT PARTIAL THROMBO TIME 27.4 SECONDS (20.0-32.1)
[2020-10-07 08:00] VITALS: BP 122/60
[2020-10-07 12:00] VITALS: BP 157/75
[2020-10-07 16:00] VITALS: BP 139/59
[2020-10-07 20:00] VITALS: BP 150/66
[2020-10-08] VITALS (9 sets, daily range): BP systolic 114–161; BP diastolic 46–76
[2020-10-08 06:33] LABS: BASO % 0.5 % (0.0-1.0); EOS # 0.7 10*3/uL (0.0-0.4); EOS % 10.2 % (1.0-4.0); HEMATOCRIT 31.6 % (42.0-52.0); LYMPH # 1.6 10*3/uL (1.3-4.4); LYMPH % 24.1 % (27.0-41.0); MEAN CORPUSCULAR HGB 23.8 pg (27.0-31.0); MEAN CORPUSCULAR HGB CONC 29.4 g/dl (33.0-37.0); MEAN PLATELET VOLUME 11.7 fl (9.6-12.3); MONO # 0.7 10*3/uL (0.1-1.0); MONO % 10.5 % (3.0-9.0); NEUT # 3.5 10*3/uL (2.3-7.9); NEUT % 53.6 % (47.0-73.0); PLATELET COUNT AUTOMATED 144 10*3/uL (130-400); RED CELL DISTRI WIDTH 17.6 % (0-14.5); WHITE BLOOD COUNT 6.6 10*3/uL (4.8-10.8)
[2020-10-08 06:44] LABS: BUN 13 mg/dl (7-24); CHLORIDE 108 mmol/L (98-107); CREATININE 1.11 mg/dL (0.70-1.30); POTASSIUM 3.8 mmol/L (3.5-5.1); SODIUM 139 mmol/L (136-145)
[2020-10-09 06:26] LABS: HEMATOCRIT 31.1 % (42.0-52.0); MEAN CELL VOLUME 80.4 fl (80.0-94.0); MEAN CORPUSCULAR HGB 23.8 pg (27.0-31.0); MEAN CORPUSCULAR HGB CONC 29.6 g/dl (33.0-37.0); MEAN PLATELET VOLUME 12.2 fl (9.6-12.3); PLATELET COUNT AUTOMATED 170 10*3/uL (130-400); RED BLOOD COUNT 3.87 10*6/uL (4.50-5.90); RED CELL DISTRI WIDTH 17.4 % (0-14.5); WHITE BLOOD COUNT 6.5 10*3/uL (4.8-10.8)
[2020-10-09 06:46] LABS: BUN 13 mg/dl (7-24); CHLORIDE 106 mmol/L (98-107); CREATININE 1.12 mg/dL (0.70-1.30); POTASSIUM 3.9 mmol/L (3.5-5.1); SODIUM 140 mmol/L (136-145)
[2020-10-09 07:16] LABS: TOTAL CELLS COUNTED 100 #CELLS
[2020-10-09 07:17] LABS: MICROCYTOSIS SLIGHT; OVALOCYTES FEW; PLATELET SUFFICIENCY NORMAL (NORMAL); POLYCHROMASIA SLIGHT; TARGET CELLS FEW
[2020-10-09 08:00] VITALS: BP 132/71
[2020-10-09] MEDS ORDERED: CEFEPIME2 GM/100 M IV (11:55)
[2020-10-09 12:00] VITALS: BP 122/80
[2020-10-09 14:08] LABS: ACID FAST SPEC PROCESSING Tissue Grinding (.)
[2020-10-09 14:08] LABS: ACID FAST SPEC PROCESSING Tissue Grinding (.)
[2020-10-09 14:08] LABS: ACID FAST SPEC PROCESSING Tissue Grinding (.)
[2020-10-09 14:08] LABS: ACID FAST SPEC PROCESSING Tissue Grinding (.)
== END 2020-10-09 14:00 | disposition home health service (06) | DRG 629 ==
LOC: ED 16:04 → 5E 20:12 → EDHOLD 20:12 → 5E 23:43
PROVIDERS: Podiatrist; ADMIT Internal Medicine; ATTEND Internal Medicine
PROC: 0QBH0ZZ Excision of Left Tibia, Open Approach (ICD-10-PCS; principal; 2020-10-08)
PROC: 0QBM0ZX Excision of Left Tarsal, Open Approach, Diagnostic (ICD-10-PCS; 2020-10-08)
PROC: 0K9T0ZZ Drainage of Left Lower Leg Muscle, Open Approach (ICD-10-PCS; 2020-10-08)
DX: E11.69 Type 2 diabetes mellitus with other specified complication (principal); I48.21 Permanent atrial fibrillation; I48.92 Unspecified atrial flutter; M86.8X7 Other osteomyelitis, ankle and foot; F33.9 Major depressive disorder, recurrent, unspecified; R78.81 Bacteremia; E11.51 Type 2 diabetes mellitus with diabetic peripheral angiopathy without gangrene; E11.65 Type 2 diabetes mellitus with hyperglycemia; G89.29 Other chronic pain; M54.5 Low back pain; I10 Essential (primary) hypertension; S91.002A Unspecified open wound, left ankle, initial encounter; E78.2 Mixed hyperlipidemia; E11.42 Type 2 diabetes mellitus with diabetic polyneuropathy; Z79.01 Long term (current) use of anticoagulants; Z83.3 Family history of diabetes mellitus; Z82.49 Family history of ischemic heart disease and other diseases of the circulatory system; X58.XXXA Exposure to other specified factors, initial encounter; Y93.89 Activity, other specified; Y92.89 Other specified places as the place of occurrence of the external cause; Y99.8 Other external cause status; Z68.30 Body mass index [BMI] 30.0-30.9, adult

== ENCOUNTER 2020-10-22 18:40 | Emergency (ER) | payer OTHER ==
[~2020-10-22] VITALS: Ht 182.8 cm; Wt 102.1 kg
[~2020-10-22 18:40] MED LIST changes: +CEFEPIME2 GM/100 M IV
[2020-10-22 21:04] LABS: BASO % 0.4 % (0.0-1.0); EOS # 0.5 10*3/uL (0.0-0.4); EOS % 5.4 % (1.0-4.0); HEMATOCRIT 34.9 % (42.0-52.0); LYMPH # 2.1 10*3/uL (1.3-4.4); LYMPH % 22.6 % (27.0-41.0); MEAN CELL VOLUME 77.9 fl (80.0-94.0); MEAN CORPUSCULAR HGB 22.8 pg (27.0-31.0); MEAN CORPUSCULAR HGB CONC 29.2 g/dl (33.0-37.0); MEAN PLATELET VOLUME 12.8 fl (9.6-12.3); MONO # 0.7 10*3/uL (0.1-1.0); MONO % 7.5 % (3.0-9.0); NEUT % 63.5 % (47.0-73.0); PLATELET COUNT AUTOMATED 132 10*3/uL (130-400); RED BLOOD COUNT 4.48 10*6/uL (4.50-5.90); RED CELL DISTRI WIDTH 16.7 % (0-14.5); WHITE BLOOD COUNT 9.4 10*3/uL (4.8-10.8)
[2020-10-22 21:17] LABS: ALBUMIN 2.7 gm/dl (3.1-4.5); ALKALINE PHOSPHATASE 82 U/L (45-117); BUN 29 mg/dl (7-24); CHLORIDE 106 mmol/L (98-107); CREATININE 1.12 mg/dL (0.70-1.30); POTASSIUM 4.5 mmol/L (3.5-5.1); SGOT/AST 4 IU/L (3-35); SGPT/ALT 11 U/L (12-78); SODIUM 136 mmol/L (136-145); TOTAL PROTEIN 7.2 gm/dL (6.4-8.2)
== END 2020-10-23 00:26 | disposition home or self-care (01) ==
LOC: ED 18:40
PROVIDERS: Physician Assistant
DX: M86.9 Osteomyelitis, unspecified (principal); Z48.01 Encounter for change or removal of surgical wound dressing; Z79.899 Other long term (current) drug therapy; Z95.818 Presence of other cardiac implants and grafts; Z98.890 Other specified postprocedural states

== ENCOUNTER 2020-10-26 18:48 | Emergency (ER) | payer OTHER ==
[~2020-10-26] VITALS: Wt 109.3 kg
[2020-10-26 19:45] LABS: BASO % 0.4 % (0.0-1.0); EOS % 0.3 % (1.0-4.0); HEMATOCRIT 39.7 % (42.0-52.0); LYMPH % 9.3 % (27.0-41.0); MEAN CELL VOLUME 77.5 fl (80.0-94.0); MEAN CORPUSCULAR HGB 22.7 pg (27.0-31.0); MEAN CORPUSCULAR HGB CONC 29.2 g/dl (33.0-37.0); MONO # 0.6 10*3/uL (0.1-1.0); MONO % 5.2 % (3.0-9.0); NEUT # 8.8 10*3/uL (2.3-7.9); NEUT % 83.9 % (47.0-73.0); PLATELET COUNT AUTOMATED 143 10*3/uL (130-400); RED BLOOD COUNT 5.12 10*6/uL (4.50-5.90); RED CELL DISTRI WIDTH 16.4 % (0-14.5); WHITE BLOOD COUNT 10.5 10*3/uL (4.8-10.8)
[2020-10-26 19:54] LABS: ACT PARTIAL THROMBO TIME 21.1 SECONDS (20.0-32.1); INTERNATIONAL NORM RATIO 1.1 (2.0-3.5)
[2020-10-26 20:05] LABS: ALBUMIN 3.2 gm/dl (3.1-4.5); ALKALINE PHOSPHATASE 98 U/L (45-117); BUN 17 mg/dl (7-24); CHLORIDE 108 mmol/L (98-107); CKMB < 1.0 ng/ml (0.5-3.6); CPK 28 U/L (39-308); CREATININE 1.33 mg/dL (0.70-1.30); POTASSIUM 3.9 mmol/L (3.5-5.1); SGOT/AST 5 IU/L (3-35); SGPT/ALT 12 U/L (12-78); SODIUM 138 mmol/L (136-145); TOTAL PROTEIN 8.3 gm/dL (6.4-8.2)
[2020-10-26 20:12] LABS: ETHYL ALCOHOL < 3.0 mg/dl (<3); TROPONIN I < 0.015 ng/ml (<0.045)
[2020-10-26 20:16] LABS: DIGOXIN 0.36 ng/ml (0.8-2.0)
== END 2020-10-26 20:44 | disposition short-term general hospital (02) ==
LOC: ED 18:48
PROVIDERS: Physician Assistant
DX: I63.9 Cerebral infarction, unspecified (principal); E11.9 Type 2 diabetes mellitus without complications; I10 Essential (primary) hypertension; I48.91 Unspecified atrial fibrillation; F17.200 Nicotine dependence, unspecified, uncomplicated; Z98.890 Other specified postprocedural states; Z79.899 Other long term (current) drug therapy; Z79.2 Long term (current) use of antibiotics; Z79.4 Long term (current) use of insulin; Z86.73 Personal history of transient ischemic attack (TIA), and cerebral infarction without residual deficits

== ENCOUNTER 2021-01-28 15:33 | Emergency (ER) | payer OTHER ==
[~2021-01-28] VITALS: Ht 182.8 cm; Wt 108.4 kg
[2021-01-28 17:00] LABS: HEMATOCRIT 35.3 % (42.0-52.0); MEAN CELL VOLUME 67.6 fl (80.0-94.0); MEAN CORPUSCULAR HGB 19.3 pg (27.0-31.0); MEAN CORPUSCULAR HGB CONC 28.6 g/dl (33.0-37.0); PLATELET COUNT AUTOMATED 210 10*3/uL (130-400); RED BLOOD COUNT 5.22 10*6/uL (4.50-5.90); WHITE BLOOD COUNT 12.1 10*3/uL (4.8-10.8)
[2021-01-28 17:16] LABS: ALBUMIN 2.6 gm/dl (3.1-4.5); ALKALINE PHOSPHATASE 83 U/L (45-117); BUN 17 mg/dl (7-24); CHLORIDE 110 mmol/L (98-107); CREATININE 0.97 mg/dL (0.70-1.30); POTASSIUM 3.9 mmol/L (3.5-5.1); SGOT/AST 5 IU/L (3-35); SGPT/ALT 10 U/L (12-78); SODIUM 139 mmol/L (136-145); TOTAL PROTEIN 7.4 gm/dL (6.4-8.2)
[2021-01-28 17:22] LABS: PLATELET SUFFICIENCY NORMAL (NORMAL); TOTAL CELLS COUNTED 100 #CELLS
[2021-01-28 17:23] LABS: MICROCYTOSIS SLIGHT; OVALOCYTES FEW; POLYCHROMASIA SLIGHT; TARGET CELLS FEW
[2021-01-28 17:24] LABS: BURR CELLS FEW; TROPONIN I < 0.015 ng/ml (<0.045)
[2021-01-28 17:47] LABS: BILIRUBIN Negative (Negative); BLOOD 3+ (Negative); CLARITY Clear (Clear); COLOR Yellow (Yellow); GLUCOSE 3+ (Negative); KETONE Negative (Negative); LEUKO ESTERASE Negative (Negative); NITRITE Negative (Negative); PH 6.5 (4.5-8.0); UROBILINOGEN 0.2 E.U./dl (0.0-1.0)
[2021-01-28 17:56] LABS: RBC TNTC rbc/hpf (0-2); WBC 0-2 wbc/hpf (0-5)
[2021-01-28 17:57] LABS: BACTERIA TRACE; EPITHELIAL CELLS 0-2
[2021-01-28 20:04] LABS: URINE AMPHETAMINES < 1000 (1000ng/ml); URINE BARBITURATES < 200 (200ng/ml); URINE BENZODIAZEPINES < 200 (200ng/ml); URINE CANNABINOIDS (THC) > 50 (50ng/ml); URINE COCAINE < 300 (300ng/ml); URINE METHADONE < 300 (300ng/ml); URINE OPIATES < 300 (300ng/ml)
[2021-01-28 20:05] LABS: URINE PHENCYCLIDINE < 25 (25ng/ml)
== END 2021-01-28 20:12 | disposition home or self-care (01) ==
LOC: ED
PROVIDERS: Emergency Medicine; Internal Medicine
DX: R25.1 Tremor, unspecified (principal); M54.2 Cervicalgia; R11.2 Nausea with vomiting, unspecified; R25.3 Fasciculation; I48.91 Unspecified atrial fibrillation; I10 Essential (primary) hypertension; E78.5 Hyperlipidemia, unspecified; E11.9 Type 2 diabetes mellitus without complications; F17.200 Nicotine dependence, unspecified, uncomplicated; Z86.73 Personal history of transient ischemic attack (TIA), and cerebral infarction without residual deficits; Z79.899 Other long term (current) drug therapy; Z79.4 Long term (current) use of insulin; Z98.890 Other specified postprocedural states; Z95.5 Presence of coronary angioplasty implant and graft

== ENCOUNTER 2021-02-07 23:07 | Emergency (ER) | payer OTHER ==
[2021-02-07 23:27] LABS: HEMATOCRIT 41.7 % (42.0-52.0); MEAN CELL VOLUME 72.3 fl (80.0-94.0); MEAN CORPUSCULAR HGB 19.4 pg (27.0-31.0); MEAN CORPUSCULAR HGB CONC 26.9 g/dl (33.0-37.0); PLATELET COUNT AUTOMATED 331 10*3/uL (130-400); RED BLOOD COUNT 5.77 10*6/uL (4.50-5.90); RED CELL DISTRI WIDTH 19.8 % (0-14.5); WHITE BLOOD COUNT 29.3 10*3/uL (4.8-10.8)
[2021-02-07 23:44] LABS: ALKALINE PHOSPHATASE 106 U/L (45-117); BUN 32 mg/dl (7-24); CHLORIDE 110 mmol/L (98-107); CREATININE 1.73 mg/dL (0.70-1.30); ETHYL ALCOHOL < 3.0 mg/dl (<3); POTASSIUM 3.9 mmol/L (3.5-5.1); SGOT/AST 13 IU/L (3-35); SGPT/ALT 14 U/L (12-78); SODIUM 139 mmol/L (136-145); TOTAL PROTEIN 8.5 gm/dL (6.4-8.2)
[2021-02-07 23:52] LABS: BURR CELLS FEW; OVALOCYTES FEW; PLATELET SUFFICIENCY NORMAL (NORMAL); TOTAL CELLS COUNTED 100 #CELLS
[2021-02-08 00:43] LABS: BILIRUBIN Negative (Negative); BLOOD 3+ (Negative); CLARITY Clear (Clear); COLOR Yellow (Yellow); GLUCOSE 2+ (Negative); KETONE Negative (Negative); LEUKO ESTERASE Negative (Negative); NITRITE Negative (Negative); SPECIFIC GRAVITY 1.025 (1.001-1.030); UROBILINOGEN 0.2 E.U./dl (0.0-1.0)
[2021-02-08 00:54] LABS: URINE AMPHETAMINES < 1000 (1000ng/ml); URINE BARBITURATES < 200 (200ng/ml); URINE BENZODIAZEPINES < 200 (200ng/ml); URINE CANNABINOIDS (THC) > 50 (50ng/ml); URINE COCAINE < 300 (300ng/ml); URINE METHADONE < 300 (300ng/ml); URINE OPIATES > 300 (300ng/ml)
[2021-02-08 00:56] LABS: URINE PHENCYCLIDINE < 25 (25ng/ml)
[2021-02-08 01:10] LABS: BACTERIA 2+; RBC 41-50 rbc/hpf (0-2); WBC 16-20 wbc/hpf (0-5)
[2021-02-08 07:41] LABS: BASO % 0.2 % (0.0-1.0); EOS # 0.1 10*3/uL (0.0-0.4); EOS % 0.5 % (1.0-4.0); HEMATOCRIT 40.3 % (42.0-52.0); LYMPH # 0.6 10*3/uL (1.3-4.4); LYMPH % 2.7 % (27.0-41.0); MEAN CELL VOLUME 71.6 fl (80.0-94.0); MEAN CORPUSCULAR HGB 19.7 pg (27.0-31.0); MEAN CORPUSCULAR HGB CONC 27.5 g/dl (33.0-37.0); MONO % 4.1 % (3.0-9.0); NEUT # 21.3 10*3/uL (2.3-7.9); NEUT % 91.9 % (47.0-73.0); RED BLOOD COUNT 5.63 10*6/uL (4.50-5.90); RED CELL DISTRI WIDTH 19.8 % (0-14.5); WHITE BLOOD COUNT 23.2 10*3/uL (4.8-10.8)
[2021-02-08 07:42] LABS: PLATELET COUNT AUTOMATED 224 10*3/uL (130-400)
[2021-02-08 07:55] LABS: CREATININE 1.8 mg/dL (0.70-1.30)
[2021-02-08 08:03] LABS: TOTAL CELLS COUNTED 100 #CELLS
[2021-02-08 08:04] LABS: MICROCYTOSIS MODERATE; PLATELET SUFFICIENCY NORMAL (NORMAL)
[2021-02-08 08:05] LABS: POTASSIUM 4.9 mmol/L (3.5-5.1)
[2021-02-08 08:06] LABS: BURR CELLS FEW; OVALOCYTES FEW; SCHISTOCYTES FEW
== END 2021-02-08 16:10 | disposition short-term general hospital (02) ==
LOC: ED 23:07
PROVIDERS: Emergency Medicine; Internal Medicine
DX: M86.8X7 Other osteomyelitis, ankle and foot (principal); L97.519 Non-pressure chronic ulcer of other part of right foot with unspecified severity; E11.40 Type 2 diabetes mellitus with diabetic neuropathy, unspecified; R41.82 Altered mental status, unspecified; R25.8 Other abnormal involuntary movements; F41.9 Anxiety disorder, unspecified; R63.1 Polydipsia; F17.200 Nicotine dependence, unspecified, uncomplicated; Z79.899 Other long term (current) drug therapy; Z79.4 Long term (current) use of insulin; Z98.890 Other specified postprocedural states; Z86.73 Personal history of transient ischemic attack (TIA), and cerebral infarction without residual deficits; Z79.2 Long term (current) use of antibiotics

== ENCOUNTER → 2021-03-23 | Outpatient (CLI) | payer OTHER | END | disposition home or self-care (01) | LOC: COVID19 14:58 | PROVIDERS: ATTEND Internal Medicine | DX: Z11.52 Encounter for screening for COVID-19 (principal) ==

== ENCOUNTER 2021-06-09 00:04 | Inpatient (IN) | payer OTHER ==
[2021-06-09] VITALS (13 sets, daily range): BP systolic 108–206; BP diastolic 41–114
[~2021-06-09] VITALS: Ht 180.3 cm; Wt 103.9 kg
[2021-06-09 00:42] LABS: BASO % 0.3 % (0.0-1.0); EOS % 0.1 % (1.0-4.0); HEMATOCRIT 44.4 % (42.0-52.0); LYMPH # 1.3 10*3/uL (1.3-4.4); LYMPH % 10.5 % (27.0-41.0); MEAN CELL VOLUME 67.3 fl (80.0-94.0); MEAN CORPUSCULAR HGB 19.1 pg (27.0-31.0); MEAN CORPUSCULAR HGB CONC 28.4 g/dl (33.0-37.0); MONO # 0.5 10*3/uL (0.1-1.0); MONO % 4.2 % (3.0-9.0); NEUT # 10.5 10*3/uL (2.3-7.9); NEUT % 84.3 % (47.0-73.0); PLATELET COUNT AUTOMATED 179 10*3/uL (130-400); RED CELL DISTRI WIDTH 19.7 % (0-14.5); WHITE BLOOD COUNT 12.4 10*3/uL (4.8-10.8)
[2021-06-09 00:57] LABS: ALBUMIN 3.2 gm/dl (3.1-4.5); ALKALINE PHOSPHATASE 113 U/L (45-117); BUN 19 mg/dl (7-24); CHLORIDE 103 mmol/L (98-107); CREATININE 1.11 mg/dL (0.70-1.30); POTASSIUM 3.3 mmol/L (3.5-5.1); SGOT/AST 7 IU/L (3-35); SODIUM 135 mmol/L (136-145)
[2021-06-09 01:02] LABS: SGPT/ALT 12 U/L (12-78)
[2021-06-09 04:48] LABS: BUN 19 mg/dl (7-24); CHLORIDE 107 mmol/L (98-107); CREATININE 1.32 mg/dL (0.70-1.30); POTASSIUM 3.7 mmol/L (3.5-5.1); SODIUM 140 mmol/L (136-145)
[2021-06-09 07:02] LABS: BILIRUBIN Negative (Negative); BLOOD 3+ (Negative); CLARITY Clear (Clear); COLOR Yellow (Yellow); GLUCOSE 3+ (Negative); KETONE Negative (Negative); LEUKO ESTERASE Negative (Negative); NITRITE Negative (Negative); PH 6.5 (4.5-8.0); SPECIFIC GRAVITY >= 1.030 (1.001-1.030); UROBILINOGEN 0.2 E.U./dl (0.0-1.0)
[2021-06-09 07:12] LABS: URINE AMPHETAMINES < 1000 (1000ng/ml); URINE BARBITURATES < 200 (200ng/ml); URINE BENZODIAZEPINES < 200 (200ng/ml); URINE CANNABINOIDS (THC) > 50 (50ng/ml); URINE COCAINE < 300 (300ng/ml); URINE METHADONE < 300 (300ng/ml); URINE OPIATES < 300 (300ng/ml)
[2021-06-09 07:18] LABS: RBC TNTC rbc/hpf (0-2)
[2021-06-09 07:20] LABS: URINE PHENCYCLIDINE < 25 (25ng/ml)
[2021-06-09 09:43] LABS: ABG BASE EXCESS -2.6 mmol/L (-2.0-2.0); ARTERIAL BLOOD GAS PH 7.383 (7.35-7.45); ARTERIAL BLOOD GAS PO2 326.3 (80-90)
[2021-06-09 11:56] LABS: BASO % 0.2 % (0.0-1.0); EOS % 0.2 % (1.0-4.0); HEMATOCRIT 37.8 % (42.0-52.0); LYMPH # 2.7 10*3/uL (1.3-4.4); LYMPH % 20.4 % (27.0-41.0); MEAN CELL VOLUME 68.2 fl (80.0-94.0); MEAN CORPUSCULAR HGB 19.1 pg (27.0-31.0); MONO # 1.4 10*3/uL (0.1-1.0); MONO % 10.3 % (3.0-9.0); NEUT # 9.2 10*3/uL (2.3-7.9); NEUT % 68.6 % (47.0-73.0); PLATELET COUNT AUTOMATED 159 10*3/uL (130-400); RED BLOOD COUNT 5.54 10*6/uL (4.50-5.90); RED CELL DISTRI WIDTH 18.9 % (0-14.5); WHITE BLOOD COUNT 13.4 10*3/uL (4.8-10.8)
[2021-06-09 12:10] LABS: ALBUMIN 2.6 gm/dl (3.1-4.5); ALKALINE PHOSPHATASE 86 U/L (45-117); BUN 18 mg/dl (7-24); CHLORIDE 112 mmol/L (98-107); CREATININE 0.93 mg/dL (0.70-1.30); POTASSIUM 3.4 mmol/L (3.5-5.1); SGOT/AST 7 IU/L (3-35); SGPT/ALT 11 U/L (12-78); SODIUM 143 mmol/L (136-145); TOTAL PROTEIN 6.8 gm/dL (6.4-8.2)
[2021-06-09] MEDS ORDERED: TRULICITY0.75 MG/0. SC (16:20)
[2021-06-10 03:54] VITALS: BP 135/52
[2021-06-10 08:32] VITALS: BP 133/67
[2021-06-10 09:00] VITALS: BP 133/64
[2021-06-10] MEDS ORDERED: LANTUS SOL100 UNIT/1 SC (10:00)
== END 2021-06-10 12:18 | disposition home or self-care (01) | DRG 637 ==
LOC: ED 00:04 → EDHOLD 16:00
PROVIDERS: Emergency Medicine; Internal Medicine; ADMIT Internal Medicine; ATTEND Internal Medicine
DX: E11.10 Type 2 diabetes mellitus with ketoacidosis without coma (principal); G93.41 Metabolic encephalopathy; I48.21 Permanent atrial fibrillation; M86.8X7 Other osteomyelitis, ankle and foot; F33.1 Major depressive disorder, recurrent, moderate; E11.621 Type 2 diabetes mellitus with foot ulcer; L97.529 Non-pressure chronic ulcer of other part of left foot with unspecified severity; E11.69 Type 2 diabetes mellitus with other specified complication; Z20.822 Contact with and (suspected) exposure to COVID-19; R56.9 Unspecified convulsions; E78.2 Mixed hyperlipidemia; I10 Essential (primary) hypertension; E11.42 Type 2 diabetes mellitus with diabetic polyneuropathy; E11.51 Type 2 diabetes mellitus with diabetic peripheral angiopathy without gangrene; Z91.19 Patient's noncompliance with other medical treatment and regimen

== ENCOUNTER 2021-08-05 13:57 | Inpatient (IN) | payer OTHER ==
[~2021-08-05] VITALS: Ht 177.8 cm; Wt 95.5 kg
[~2021-08-05 13:57] MED LIST changes: +LANTUS SOL100 UNIT/1 SC; +TRULICITY0.75 MG/0. SC
[2021-08-05 14:30] VITALS: BP 198/93
[2021-08-05 14:59] LABS: HEMATOCRIT 51.1 % (42.0-52.0); MEAN CORPUSCULAR HGB 19.2 pg (27.0-31.0); MEAN CORPUSCULAR HGB CONC 26.6 g/dl (33.0-37.0); PLATELET COUNT AUTOMATED 283 10*3/uL (130-400); RED CELL DISTRI WIDTH 20.8 % (0-14.5); WHITE BLOOD COUNT 22.2 10*3/uL (4.8-10.8)
[2021-08-05 15:00] VITALS: BP 193/80
[2021-08-05 15:06] LABS: MANUAL DIFF REFLEX YES
[2021-08-05 15:13] LABS: ALKALINE PHOSPHATASE 114 U/L (45-117); BUN 15 mg/dl (7-24); CHLORIDE 107 mmol/L (98-107); CREATININE 1.13 mg/dL (0.70-1.30); LIPASE 417 U/L (73-393); POTASSIUM 3.2 mmol/L (3.5-5.1); SGOT/AST 7 IU/L (3-35); SGPT/ALT 10 U/L (12-78); SODIUM 139 mmol/L (136-145); TOTAL PROTEIN 8.9 gm/dL (6.4-8.2)
[2021-08-05 15:33] LABS: PLATELET SUFFICIENCY NORMAL (NORMAL); TOTAL CELLS COUNTED 100 #CELLS
[2021-08-05 15:34] LABS: MICROCYTOSIS SLIGHT
[2021-08-05 15:45] VITALS: BP 95/54
[2021-08-05 19:22] VITALS: BP 142/84
[2021-08-05 20:00] VITALS: BP 219/125
[2021-08-05 20:40] VITALS: BP 219/125
[2021-08-05 21:39] LABS: BILIRUBIN Negative (Negative); BLOOD 2+ (Negative); CLARITY Clear (Clear); COLOR Yellow (Yellow); GLUCOSE 2+ (Negative); KETONE Trace (Negative); LEUKO ESTERASE Negative (Negative); NITRITE Negative (Negative); SPECIFIC GRAVITY 1.015 (1.001-1.030); UROBILINOGEN 0.2 E.U./dl (0.0-1.0)
[2021-08-05 21:46] LABS: RBC 51-100 rbc/hpf (0-2)
[2021-08-05 21:47] LABS: EPITHELIAL CELLS 0-2; MUCOUS 1+; WBC 0-2 wbc/hpf (0-5)
[2021-08-06] VITALS: BP 168/90
[2021-08-06 04:00] VITALS: BP 134/80
[2021-08-06 06:14] LABS: ALKALINE PHOSPHATASE 88 U/L (45-117); BASO # 0.1 10*3/uL (0.0-0.1); BASO % 0.4 % (0.0-1.0); BUN 16 mg/dl (7-24); CHLORIDE 107 mmol/L (98-107); CPK 41 U/L (39-308); CREATININE 0.89 mg/dL (0.70-1.30); EOS # 0.2 10*3/uL (0.0-0.4); EOS % 1.4 % (1.0-4.0); LYMPH # 2.9 10*3/uL (1.3-4.4); LYMPH % 22.2 % (27.0-41.0); MEAN CELL VOLUME 69.5 fl (80.0-94.0); MEAN CORPUSCULAR HGB 19.3 pg (27.0-31.0); MEAN CORPUSCULAR HGB CONC 27.7 g/dl (33.0-37.0); MONO # 1.1 10*3/uL (0.1-1.0); MONO % 8.5 % (3.0-9.0); NEUT # 8.8 10*3/uL (2.3-7.9); NEUT % 66.8 % (47.0-73.0); PLATELET COUNT AUTOMATED 212 10*3/uL (130-400); POTASSIUM 3.9 mmol/L (3.5-5.1); RED BLOOD COUNT 6.33 10*6/uL (4.50-5.90); RED CELL DISTRI WIDTH 20.3 % (0-14.5); SGOT/AST 4 IU/L (3-35); SGPT/ALT 9 U/L (12-78); SODIUM 140 mmol/L (136-145); TOTAL PROTEIN 7.3 gm/dL (6.4-8.2); WHITE BLOOD COUNT 13.1 10*3/uL (4.8-10.8)
[2021-08-06 12:00] VITALS: BP 107/67
[2021-08-06 12:55] VITALS: BP 130/78
[2021-08-06 13:09] VITALS: BP 130/74
[2021-08-06 14:00] VITALS: BP 114/83
== END 2021-08-06 15:20 | disposition left against medical advice (07) | DRG 101 ==
LOC: ED 13:57 → EDHOLD 17:43 → ICCU 17:43
PROVIDERS: Emergency Medicine; ADMIT Internal Medicine; ATTEND Internal Medicine
DX: R56.9 Unspecified convulsions (principal); F33.9 Major depressive disorder, recurrent, unspecified; F33.1 Major depressive disorder, recurrent, moderate; I48.21 Permanent atrial fibrillation; M86.8X7 Other osteomyelitis, ankle and foot; E11.51 Type 2 diabetes mellitus with diabetic peripheral angiopathy without gangrene; Z79.4 Long term (current) use of insulin; Z53.29 Procedure and treatment not carried out because of patient's decision for other reasons; E11.42 Type 2 diabetes mellitus with diabetic polyneuropathy; E11.622 Type 2 diabetes mellitus with other skin ulcer; L98.499 Non-pressure chronic ulcer of skin of other sites with unspecified severity; E78.2 Mixed hyperlipidemia; F17.210 Nicotine dependence, cigarettes, uncomplicated; I12.9 Hypertensive chronic kidney disease with stage 1 through stage 4 chronic kidney disease, or unspecified chronic kidney disease; G89.29 Other chronic pain; M54.50 Low back pain, unspecified; E11.69 Type 2 diabetes mellitus with other specified complication; Z79.899 Other long term (current) drug therapy; Z91.19 Patient's noncompliance with other medical treatment and regimen

== ENCOUNTER 2021-12-21 15:02 | Emergency (ER) | payer OTHER ==
[~2021-12-21] VITALS: Wt 88.5 kg
[~2021-12-21 15:02] MED LIST changes: +CYCLOBENZAPRINE5 M3 PO; +FARXIGA5 M1 PO; +LEVAMIR SQ; +LEVETIRACETAM500 MG PO; +LOPRESSOR100 M1 PO; +PEPCID40 MG PO
[2021-12-21 16:43] LABS: BASO # 0.1 10*3/uL (0.0-0.1); BASO % 0.7 % (0.0-1.0); EOS # 0.3 10*3/uL (0.0-0.4); EOS % 2.3 % (1.0-4.0); HEMATOCRIT 47.2 % (42.0-52.0); LYMPH # 2.3 10*3/uL (1.3-4.4); LYMPH % 19.6 % (27.0-41.0); MEAN CELL VOLUME 68.1 fl (80.0-94.0); MEAN CORPUSCULAR HGB 18.9 pg (27.0-31.0); MEAN CORPUSCULAR HGB CONC 27.8 g/dl (33.0-37.0); MONO # 1.1 10*3/uL (0.1-1.0); MONO % 9.4 % (3.0-9.0); NEUT # 8.1 10*3/uL (2.3-7.9); NEUT % 67.5 % (47.0-73.0); PLATELET COUNT AUTOMATED 183 10*3/uL (130-400); RED BLOOD COUNT 6.93 10*6/uL (4.50-5.90); RED CELL DISTRI WIDTH 22.2 % (0-14.5); WHITE BLOOD COUNT 11.9 10*3/uL (4.8-10.8)
[2021-12-21 16:49] LABS: BILIRUBIN Negative (Negative); BLOOD Trace-Lysed (Negative); CLARITY Clear (Clear); COLOR Yellow (Yellow); GLUCOSE Trace (Negative); KETONE 1+ (Negative); LEUKO ESTERASE Negative (Negative); NITRITE Negative (Negative); SPECIFIC GRAVITY 1.015 (1.001-1.030); UROBILINOGEN 0.2 E.U./dl (0.0-1.0)
[2021-12-21 17:01] LABS: ACT PARTIAL THROMBO TIME 31.3 SECONDS (20.0-32.1); ALKALINE PHOSPHATASE 97 U/L (45-117); BUN 18 mg/dl (7-24); CHLORIDE 111 mmol/L (98-107); CREATININE 1.07 mg/dL (0.70-1.30); INTERNATIONAL NORM RATIO 1.1 (2.0-3.5); POTASSIUM 4.1 mmol/L (3.5-5.1); SGOT/AST 11 IU/L (3-35); SGPT/ALT 12 U/L (12-78); SODIUM 139 mmol/L (136-145); TOTAL PROTEIN 8.1 gm/dL (6.4-8.2)
[2021-12-21 17:10] LABS: MUCOUS 1+
== END 2021-12-21 16:55 | disposition left against medical advice (07) ==
LOC: ED 15:02
PROVIDERS: Emergency Medicine
DX: Z53.21 Procedure and treatment not carried out due to patient leaving prior to being seen by health care provider (principal)

== ENCOUNTER 2022-01-25 01:35 | Emergency (ER) | payer OTHER ==
[2022-01-25 02:30] LABS: ALKALINE PHOSPHATASE 101 U/L (45-117); BUN 14 mg/dl (7-24); CHLORIDE 104 mmol/L (98-107); POTASSIUM 3.1 mmol/L (3.5-5.1); SGOT/AST 13 IU/L (3-35); SGPT/ALT 11 U/L (12-78); SODIUM 136 mmol/L (136-145); TOTAL PROTEIN 8.4 gm/dL (6.4-8.2)
[2022-01-25 02:39] LABS: HEMATOCRIT 42.2 % (42.0-52.0); MEAN CELL VOLUME 65.5 fl (80.0-94.0); MEAN CORPUSCULAR HGB 19.6 pg (27.0-31.0); MEAN CORPUSCULAR HGB CONC 29.9 g/dl (33.0-37.0); PLATELET COUNT AUTOMATED 185 10*3/uL (130-400); RED BLOOD COUNT 6.44 10*6/uL (4.50-5.90); RED CELL DISTRI WIDTH 21.6 % (0-14.5); WHITE BLOOD COUNT 15.4 10*3/uL (4.8-10.8)
[2022-01-25 02:43] LABS: MANUAL DIFF REFLEX YES
[2022-01-25 02:54] LABS: MICROCYTOSIS SLIGHT; PLATELET SUFFICIENCY NORMAL (NORMAL); POLYCHROMASIA SLIGHT; TOTAL CELLS COUNTED 100 #CELLS
[2022-01-25 02:55] LABS: BURR CELLS FEW; OVALOCYTES FEW
[2022-01-25 03:34] LABS: BILIRUBIN Negative (Negative); BLOOD 2+ (Negative); CLARITY Clear (Clear); COLOR Yellow (Yellow); GLUCOSE 3+ (Negative); KETONE 2+ (Negative); LEUKO ESTERASE Negative (Negative); NITRITE Negative (Negative); UROBILINOGEN 0.2 E.U./dl (0.0-1.0)
[2022-01-25 03:44] LABS: URINE AMPHETAMINES < 1000 (1000ng/ml); URINE BARBITURATES < 200 (200ng/ml); URINE BENZODIAZEPINES < 200 (200ng/ml); URINE CANNABINOIDS (THC) > 50 (50ng/ml); URINE COCAINE < 300 (300ng/ml); URINE METHADONE < 300 (300ng/ml); URINE OPIATES < 300 (300ng/ml); URINE PHENCYCLIDINE < 25 (25ng/ml)
[2022-01-25 04:03] LABS: BACTERIA 1+; RBC 21-30 rbc/hpf (0-2)
== END 2022-01-25 09:06 | disposition home or self-care (01) ==
LOC: ED 01:35
PROVIDERS: Internal Medicine
DX: S09.90XA Unspecified injury of head, initial encounter (principal); R56.9 Unspecified convulsions; Z79.899 Other long term (current) drug therapy; Z87.891 Personal history of nicotine dependence; W18.39XA Other fall on same level, initial encounter; Y93.89 Activity, other specified; Y92.89 Other specified places as the place of occurrence of the external cause; Y99.8 Other external cause status

== ENCOUNTER 2022-05-27 22:33 | Inpatient (IN) | payer OTHER ==
[~2022-05-27] VITALS: Ht 175.3 cm; Wt 83.5 kg
[~2022-05-27 22:33] MED LIST changes: +KEPPRA750 MG PO; +METOPROLOL TART50 M1 PO; +OMNICEF300 MG PO
[2022-05-27 22:38] VITALS: BP 221/158
[2022-05-27] MEDS ORDERED: HEARTBURN RELIE20 MG PO (22:45)
[2022-05-27] MEDS ORDERED: DIGOX125 MCG PO (22:46)
[2022-05-27] MEDS ORDERED: ONDANSETRON8 MG PO (22:48)
[2022-05-27] MEDS ORDERED: LIPITOR80 MG PO (22:49)
[2022-05-27] MEDS ORDERED: DONEPEZIL HYDROC5 MG PO (22:49)
[2022-05-27] MEDS ORDERED: CYCLOBENZAPRINE10 MG PO (22:50)
[2022-05-27] MEDS ORDERED: ZYVOX600 MG PO (22:53)
[2022-05-27 23:01] LABS: BASO # 0.1 10*3/uL (0.0-0.1); BASO % 0.6 % (0.0-1.0); EOS % 0.2 % (1.0-4.0); HEMATOCRIT 44.4 % (42.0-52.0); LYMPH # 1.2 10*3/uL (1.3-4.4); LYMPH % 9.7 % (27.0-41.0); MEAN CELL VOLUME 70.9 fl (80.0-94.0); MEAN CORPUSCULAR HGB 21.7 pg (27.0-31.0); MEAN CORPUSCULAR HGB CONC 30.6 g/dl (33.0-37.0); MONO # 0.5 10*3/uL (0.1-1.0); MONO % 4.4 % (3.0-9.0); NEUT # 10.1 10*3/uL (2.3-7.9); NEUT % 84.5 % (47.0-73.0); PLATELET COUNT AUTOMATED 198 10*3/uL (130-400); RED BLOOD COUNT 6.26 10*6/uL (4.50-5.90); RED CELL DISTRI WIDTH 21.5 % (0-14.5); WHITE BLOOD COUNT 11.9 10*3/uL (4.8-10.8)
[2022-05-27 23:16] LABS: ALKALINE PHOSPHATASE 101 U/L (46-116); BUN 10 mg/dl (9-23); CHLORIDE 105 mmol/L (98-107); CREATININE 0.95 mg/dL (0.70-1.30); POTASSIUM 4.1 mmol/L (3.4-5.1); SODIUM 136 mmol/L (136-145); TOTAL PROTEIN 7.8 gm/dL (6.0-8.0)
[2022-05-27 23:27] LABS: SGPT/ALT 12 U/L (10-49)
[2022-05-28 00:13] VITALS: BP 189/97
[2022-05-28 00:43] LABS: BILIRUBIN Negative (Negative); BLOOD 1+ (Negative); CLARITY Clear (Clear); COLOR Yellow (Yellow); GLUCOSE 2+ (Negative); KETONE Trace (Negative); LEUKO ESTERASE Negative (Negative); NITRITE Negative (Negative); SPECIFIC GRAVITY 1.015 (1.001-1.030); UROBILINOGEN 0.2 E.U./dl (0.0-1.0)
[2022-05-28 00:50] LABS: URINE AMPHETAMINES Negative (1000ng/ml); URINE BARBITURATES Negative (200ng/ml); URINE BENZODIAZEPINES Negative (200ng/ml); URINE CANNABINOIDS (THC) Positive (50ng/ml); URINE COCAINE Negative (300ng/ml); URINE METHADONE Negative (300ng/ml); URINE OPIATES Negative (300ng/ml); URINE PHENCYCLIDINE Negative (25ng/ml)
[2022-05-28 01:02] LABS: RBC 21-30 rbc/hpf (0-2)
[2022-05-28 03:01] VITALS: BP 190/94
[2022-05-28 06:13] VITALS: BP 195/100
[2022-05-28 08:50] VITALS: BP 120/70
[2022-05-28 17:20] VITALS: BP 138/74
[2022-05-28 20:00] VITALS: BP 132/65
[2022-05-29] VITALS: BP 117/61
[2022-05-29 05:57] LABS: BUN 15 mg/dl (9-23); CHLORIDE 105 mmol/L (98-107); CREATININE 0.98 mg/dL (0.70-1.30); POTASSIUM 3.5 mmol/L (3.4-5.1); SODIUM 139 mmol/L (136-145)
[2022-05-29 06:37] LABS: BASO # 0.1 10*3/uL (0.0-0.1); BASO % 0.7 % (0.0-1.0); EOS # 0.4 10*3/uL (0.0-0.4); EOS % 3.6 % (1.0-4.0); HEMATOCRIT 39.7 % (42.0-52.0); LYMPH # 4.5 10*3/uL (1.3-4.4); LYMPH % 41.4 % (27.0-41.0); MEAN CELL VOLUME 72.8 fl (80.0-94.0); MEAN CORPUSCULAR HGB 21.5 pg (27.0-31.0); MEAN CORPUSCULAR HGB CONC 29.5 g/dl (33.0-37.0); MONO # 1.2 10*3/uL (0.1-1.0); MONO % 11.4 % (3.0-9.0); NEUT # 4.6 10*3/uL (2.3-7.9); NEUT % 42.4 % (47.0-73.0); PLATELET COUNT AUTOMATED 197 10*3/uL (130-400); RED BLOOD COUNT 5.45 10*6/uL (4.50-5.90); RED CELL DISTRI WIDTH 21.4 % (0-14.5); WHITE BLOOD COUNT 10.8 10*3/uL (4.8-10.8)
[2022-05-29 08:00] VITALS: BP 103/50
[2022-05-29 12:00] VITALS: BP 126/60
[2022-05-29] MEDS ORDERED: LEVEMIR FL100 UNIT/1 SC (13:30)
[2022-05-29] MEDS ORDERED: PANTOPRAZOLE SO40 MG PO (13:32)
[2022-05-29 16:00] VITALS: BP 110/58
[2022-05-29 20:00] VITALS: BP 134/60
[2022-05-30] VITALS: BP 115/70
[2022-05-30 08:00] VITALS: BP 124/50
[2022-05-30 12:00] VITALS: BP 138/69
[2022-05-30 16:00] VITALS: BP 137/53
== END 2022-05-30 19:14 | disposition left against medical advice (07) | DRG 101 ==
LOC: ED 22:33 → EDHOLD 05-28 00:43 → 4E 05-28 00:43
PROVIDERS: Emergency Medicine; ADMIT Internal Medicine; ATTEND Internal Medicine
DX: G40.409 Other generalized epilepsy and epileptic syndromes, not intractable, without status epilepticus (principal); I48.21 Permanent atrial fibrillation; I13.0 Hypertensive heart and chronic kidney disease with heart failure and stage 1 through stage 4 chronic kidney disease, or unspecified chronic kidney disease; E11.621 Type 2 diabetes mellitus with foot ulcer; R41.0 Disorientation, unspecified; L97.529 Non-pressure chronic ulcer of other part of left foot with unspecified severity; Z53.29 Procedure and treatment not carried out because of patient's decision for other reasons; G30.1 Alzheimer's disease with late onset; F02.80 Dementia in other diseases classified elsewhere, unspecified severity, without behavioral disturbance, psychotic disturbance, mood disturbance, and anxiety; E78.2 Mixed hyperlipidemia; E11.22 Type 2 diabetes mellitus with diabetic chronic kidney disease; N18.9 Chronic kidney disease, unspecified; E11.42 Type 2 diabetes mellitus with diabetic polyneuropathy; E11.65 Type 2 diabetes mellitus with hyperglycemia; Z79.01 Long term (current) use of anticoagulants; Z83.3 Family history of diabetes mellitus; Z82.49 Family history of ischemic heart disease and other diseases of the circulatory system

== ENCOUNTER 2022-06-19 16:55 | Emergency (ER) | payer OTHER ==
[~2022-06-19] VITALS: Ht 185.4 cm; Wt 85.7 kg
[~2022-06-19 16:55] MED LIST changes: +DIGOX125 MCG PO; +DONEPEZIL HYDROC5 MG PO; +HEARTBURN RELIE20 MG PO; +LEVEMIR FL100 UNIT/1 SC; +LIPITOR80 MG PO; +ONDANSETRON8 MG PO; +PANTOPRAZOLE SO40 MG PO; +ZYVOX600 MG PO
[2022-06-19 18:01] LABS: BASO # 0.1 10*3/uL (0.0-0.1); BASO % 0.4 % (0.0-1.0); EOS # 0.3 10*3/uL (0.0-0.4); LYMPH % 26.7 % (27.0-41.0); MEAN CELL VOLUME 73.7 fl (80.0-94.0); MEAN CORPUSCULAR HGB 21.7 pg (27.0-31.0); MEAN CORPUSCULAR HGB CONC 29.4 g/dl (33.0-37.0); MONO % 8.8 % (3.0-9.0); NEUT # 6.7 10*3/uL (2.3-7.9); NEUT % 59.8 % (47.0-73.0); PLATELET COUNT AUTOMATED 101 10*3/uL (130-400); RED BLOOD COUNT 4.75 10*6/uL (4.50-5.90); RED CELL DISTRI WIDTH 21.2 % (0-14.5); WHITE BLOOD COUNT 11.2 10*3/uL (4.8-10.8)
[2022-06-19 18:18] LABS: ALKALINE PHOSPHATASE 84 U/L (46-116); BUN 17 mg/dl (9-23); CHLORIDE 105 mmol/L (98-107); POTASSIUM 4.4 mmol/L (3.4-5.1); SGPT/ALT 8 U/L (10-49); TOTAL PROTEIN 6.8 gm/dL (6.0-8.0)
== END 2022-06-19 20:23 | disposition home or self-care (01) ==
LOC: ED 16:55
PROVIDERS: Emergency Medicine
DX: R07.89 Other chest pain (principal); E11.621 Type 2 diabetes mellitus with foot ulcer; Z79.4 Long term (current) use of insulin; Z98.890 Other specified postprocedural states; F17.200 Nicotine dependence, unspecified, uncomplicated; I25.10 Atherosclerotic heart disease of native coronary artery without angina pectoris; L97.529 Non-pressure chronic ulcer of other part of left foot with unspecified severity; D69.6 Thrombocytopenia, unspecified; D50.9 Iron deficiency anemia, unspecified

== ENCOUNTER 2022-09-01 15:54 | Emergency (ER) | payer OTHER ==
[~2022-09-01] VITALS: Wt 88.5 kg
[2022-09-01 16:29] LABS: BASO % 0.3 % (0.0-1.0); EOS % 0.3 % (1.0-4.0); HEMATOCRIT 41.2 % (42.0-52.0); LYMPH # 1.1 10*3/uL (1.3-4.4); LYMPH % 9.1 % (27.0-41.0); MEAN CELL VOLUME 68.3 fl (80.0-94.0); MEAN CORPUSCULAR HGB 19.2 pg (27.0-31.0); MEAN CORPUSCULAR HGB CONC 28.2 g/dl (33.0-37.0); MONO # 0.7 10*3/uL (0.1-1.0); MONO % 5.5 % (3.0-9.0); NEUT # 9.9 10*3/uL (2.3-7.9); NEUT % 84.4 % (47.0-73.0); PLATELET COUNT AUTOMATED 145 10*3/uL (130-400); RED BLOOD COUNT 6.03 10*6/uL (4.50-5.90); RED CELL DISTRI WIDTH 20.7 % (0-14.5); WHITE BLOOD COUNT 11.7 10*3/uL (4.8-10.8)
[2022-09-01 16:49] LABS: ALKALINE PHOSPHATASE 94 U/L (46-116); BUN 12 mg/dl (9-23); CHLORIDE 105 mmol/L (98-107); POTASSIUM 3.6 mmol/L (3.4-5.1)
[2022-09-01 16:59] LABS: SGPT/ALT < 7 U/L (10-49)
== END 2022-09-01 19:26 | disposition home or self-care (01) ==
LOC: ED 15:54
PROVIDERS: Emergency Medicine
DX: S05.11XA Contusion of eyeball and orbital tissues, right eye, initial encounter (principal); R56.9 Unspecified convulsions; Z98.890 Other specified postprocedural states; F17.200 Nicotine dependence, unspecified, uncomplicated; W06.XXXA Fall from bed, initial encounter; Y93.89 Activity, other specified; Y92.89 Other specified places as the place of occurrence of the external cause; Y99.8 Other external cause status

== ENCOUNTER 2022-11-10 16:31 | Emergency (ER) | payer OTHER ==
[~2022-11-10] VITALS: Ht 182.8 cm; Wt 88.0 kg
[2022-11-10 16:31] VITALS: BP 125/98
[2022-11-10 16:57] LABS: HEMATOCRIT 40.7 % (42.0-52.0); MEAN CELL VOLUME 64.7 fl (80.0-94.0); MEAN CORPUSCULAR HGB 17.6 pg (27.0-31.0); MEAN CORPUSCULAR HGB CONC 27.3 g/dl (33.0-37.0); PLATELET COUNT AUTOMATED 176 10*3/uL (130-400); RED BLOOD COUNT 6.29 10*6/uL (4.50-5.90)
[2022-11-10 16:59] LABS: MANUAL DIFF REFLEX YES
[2022-11-10 17:07] LABS: INTERNATIONAL NORM RATIO 1.1 (2.0-3.5)
[2022-11-10 17:25] LABS: BASOPHILS 1 % (0-1); TOTAL CELLS COUNTED 100 #CELLS
[2022-11-10 17:26] LABS: ACANTHOCYTES MODERATE; MICROCYTOSIS MARKED; PLATELET SUFFICIENCY NORMAL (NORMAL); SCHISTOCYTES FEW
[2022-11-10 17:28] LABS: ALKALINE PHOSPHATASE 82 U/L (46-116); BUN 12 mg/dl (9-23); CHLORIDE 107 mmol/L (98-107); LIPASE 33 U/L (12-53); POTASSIUM 3.8 mmol/L (3.4-5.1); TOTAL PROTEIN 7.3 gm/dL (6.0-8.0)
[2022-11-10 17:29] LABS: SGPT/ALT < 7 U/L (10-49)
[2022-11-10] MEDS ORDERED: DULOXETINE HCL30 MG PO (17:38)
[2022-11-10 18:28] VITALS: BP 200/100
[2022-11-10 18:36] VITALS: BP 153/107
[2022-11-10 19:08] VITALS: BP 135/52
== END 2022-11-10 19:00 | disposition left against medical advice (07) ==
LOC: ED 16:31 → EDHOLD 18:04 → ED 18:20 → EDHOLD 19:47
PROVIDERS: Emergency Medicine
DX: I48.0 Paroxysmal atrial fibrillation (principal); R07.89 Other chest pain; R42 Dizziness and giddiness; F17.200 Nicotine dependence, unspecified, uncomplicated; Z79.899 Other long term (current) drug therapy; Z98.890 Other specified postprocedural states

== ENCOUNTER 2023-01-08 17:15 | Emergency (ER) | payer OTHER ==
[~2023-01-08 17:15] MED LIST changes: +DULOXETINE HCL30 MG PO
== END 2023-01-08 18:00 | disposition left against medical advice (07) ==
LOC: ED 17:15
DX: R07.81 Pleurodynia (principal); Z53.21 Procedure and treatment not carried out due to patient leaving prior to being seen by health care provider

== ENCOUNTER 2023-01-11 10:06 | Emergency (ER) | payer OTHER ==
[~2023-01-11] VITALS: Ht 182.8 cm; Wt 83.9 kg
[2023-01-11 11:39] LABS: ACT PARTIAL THROMBO TIME 30.4 SECONDS (20.0-32.1); HEMATOCRIT 36.1 % (42.0-52.0); MEAN CELL VOLUME 66.5 fl (80.0-94.0); MEAN CORPUSCULAR HGB 17.9 pg (27.0-31.0); MEAN CORPUSCULAR HGB CONC 26.9 g/dl (33.0-37.0); PLATELET COUNT AUTOMATED 171 10*3/uL (130-400); RED BLOOD COUNT 5.43 10*6/uL (4.50-5.90); WHITE BLOOD COUNT 8.9 10*3/uL (4.8-10.8)
[2023-01-11 11:42] LABS: MANUAL DIFF REFLEX YES
[2023-01-11 11:49] LABS: ATYPICAL LYMPHS 1 % (0-0); BASOPHILS 1 % (0-1); TOTAL CELLS COUNTED 100 #CELLS
[2023-01-11 11:50] LABS: ACANTHOCYTES FEW; ALKALINE PHOSPHATASE 76 U/L (46-116); BUN 12 mg/dl (9-23); BURR CELLS MODERATE; CHLORIDE 107 mmol/L (98-107); LIPASE 38 U/L (12-53); MICROCYTOSIS MODERATE; OVALOCYTES FEW; PLATELET SUFFICIENCY NORMAL (NORMAL); POLYCHROMASIA SLIGHT; POTASSIUM 3.8 mmol/L (3.4-5.1); TOTAL PROTEIN 6.5 gm/dL (6.0-8.0)
[2023-01-11 11:51] LABS: SCHISTOCYTES FEW
[2023-01-11 12:01] LABS: SGPT/ALT < 7 U/L (10-49)
[2023-01-11] MEDS ORDERED: PERCOCET 5-3251 EACH PO (14:23)
== END 2023-01-11 14:30 | disposition home or self-care (01) ==
LOC: ED 10:06
PROVIDERS: Emergency Medicine
DX: S22.41XA Multiple fractures of ribs, right side, initial encounter for closed fracture (principal); E11.9 Type 2 diabetes mellitus without complications; I10 Essential (primary) hypertension; E78.00 Pure hypercholesterolemia, unspecified; Z98.890 Other specified postprocedural states; F17.200 Nicotine dependence, unspecified, uncomplicated; W17.89XA Other fall from one level to another, initial encounter; Y93.89 Activity, other specified; Y92.008 Other place in unspecified non-institutional (private) residence as the place of occurrence of the external cause; Y99.0 Civilian activity done for income or pay

== ENCOUNTER 2023-05-26 16:27 | Emergency (ER) | payer OTHER ==
[~2023-05-26] VITALS: Wt 83.9 kg
[~2023-05-26 16:27] MED LIST changes: +PERCOCET 5-3251 EACH PO
[2023-05-26] MEDS ORDERED: JARDIANCE10 MG PO (16:40)
[2023-05-26] MEDS ORDERED: LYRICA200 M1 PO (16:41)
[2023-05-26] MEDS ORDERED: REGLAN5 MG PO (16:41)
[2023-05-26] MEDS ORDERED: HYDROCODONE-AC1 EACH PO (16:41)
[2023-05-26] MEDS ORDERED: LEVEMIR100 UNIT/1 SC (16:42)
[2023-05-26 16:52] LABS: HEMATOCRIT 38.8 % (42.0-52.0); MEAN CELL VOLUME 62.4 fl (80.0-94.0); MEAN CORPUSCULAR HGB 15.4 pg (27.0-31.0); MEAN CORPUSCULAR HGB CONC 24.7 g/dl (33.0-37.0); PLATELET COUNT AUTOMATED 142 10*3/uL (130-400); RED BLOOD COUNT 6.22 10*6/uL (4.50-5.90); RED CELL DISTRI WIDTH 21.9 % (0-14.5); WHITE BLOOD COUNT 9.1 10*3/uL (4.8-10.8)
[2023-05-26 16:58] LABS: URINE AMPHETAMINES Negative (1000ng/ml); URINE BARBITURATES Negative (200ng/ml); URINE BENZODIAZEPINES Negative (200ng/ml); URINE CANNABINOIDS (THC) Positive (50ng/ml); URINE COCAINE Negative (300ng/ml); URINE METHADONE Negative (300ng/ml); URINE OPIATES Positive (300ng/ml); URINE PHENCYCLIDINE Negative (25ng/ml)
[2023-05-26 17:01] LABS: ACT PARTIAL THROMBO TIME 29.3 SECONDS (20.0-32.1)
[2023-05-26 17:15] LABS: ALKALINE PHOSPHATASE 102 U/L (46-116); BUN 18 mg/dl (9-23); CHLORIDE 105 mmol/L (98-107); LIPASE 26 U/L (12-53); POTASSIUM 3.7 mmol/L (3.4-5.1); TOTAL PROTEIN 7.2 gm/dL (6.0-8.0)
[2023-05-26 17:20] LABS: MANUAL DIFF REFLEX YES
[2023-05-26 17:25] LABS: ETHYL ALCOHOL < 3.0 mg/dl (<3); SGPT/ALT < 7 U/L (5-49)
[2023-05-26 17:27] LABS: BASOPHILS 1 % (0-1); TOTAL CELLS COUNTED 100 #CELLS
[2023-05-26 17:28] LABS: PLATELET SUFFICIENCY NORMAL (NORMAL); TARGET CELLS FEW
[2023-05-26 17:29] LABS: OVALOCYTES FEW
== END 2023-05-27 06:13 | disposition home or self-care (01) ==
LOC: ED 16:27
PROVIDERS: Family Medicine
DX: S00.11XA Contusion of right eyelid and periocular area, initial encounter (principal); R56.9 Unspecified convulsions; D53.9 Nutritional anemia, unspecified; Z91.148 Patient's other noncompliance with medication regimen for other reason; E11.9 Type 2 diabetes mellitus without complications; I10 Essential (primary) hypertension; E78.00 Pure hypercholesterolemia, unspecified; Z98.890 Other specified postprocedural states; F17.200 Nicotine dependence, unspecified, uncomplicated; W01.10XA Fall on same level from slipping, tripping and stumbling with subsequent striking against unspecified object, initial encounter; Y93.89 Activity, other specified; Y92.89 Other specified places as the place of occurrence of the external cause; Y99.8 Other external cause status

== ENCOUNTER 2024-01-19 18:03 | Emergency (ER) | payer OTHER ==
[~2024-01-19] VITALS: Ht 182.8 cm; Wt 79.4 kg
[~2024-01-19 18:03] MED LIST changes: +HYDROCODONE-AC1 EACH PO; +JARDIANCE10 MG PO; +LEVEMIR100 UNIT/1 SC; +REGLAN5 MG PO
[2024-01-19 18:43] LABS: HEMATOCRIT 36.5 % (42.0-52.0); MEAN CELL VOLUME 63.1 fl (80.0-94.0); MEAN CORPUSCULAR HGB 17.1 pg (27.0-31.0); MEAN CORPUSCULAR HGB CONC 27.1 g/dl (33.0-37.0); PLATELET COUNT AUTOMATED 141 10*3/uL (130-400); RED BLOOD COUNT 5.78 10*6/uL (4.50-5.90); RED CELL DISTRI WIDTH 22.3 % (0-14.5); WHITE BLOOD COUNT 10.3 10*3/uL (4.8-10.8)
[2024-01-19 19:05] LABS: ALKALINE PHOSPHATASE 65 U/L (46-116); BUN 12 mg/dl (9-23); CHLORIDE 108 mmol/L (98-107); POTASSIUM 3.4 mmol/L (3.4-5.1); TOTAL PROTEIN 6.9 gm/dL (6.0-8.0)
[2024-01-19 19:06] LABS: ETHYL ALCOHOL < 3.0 mg/dl (<3); SGPT/ALT < 7 U/L (5-49)
[2024-01-19 19:09] LABS: MANUAL DIFF REFLEX YES
[2024-01-19 19:15] LABS: BASOPHILS 2 % (0-1); MICROCYTOSIS MARKED; TOTAL CELLS COUNTED 100 #CELLS
[2024-01-19 19:16] LABS: OVALOCYTES MODERATE
[2024-01-19 19:17] LABS: SCHISTOCYTES FEW
[2024-01-19 19:18] LABS: PLATELET SUFFICIENCY NORMAL (NORMAL)
[2024-01-19 21:34] LABS: BILIRUBIN Negative (Negative); BLOOD Negative (Negative); CLARITY Clear (Clear); COLOR Yellow (Yellow); GLUCOSE 1+ (Negative); KETONE Negative (Negative); LEUKO ESTERASE Negative (Negative); NITRITE Negative (Negative); PH 6.5 (4.5-8.0); SPECIFIC GRAVITY <= 1.005 (1.001-1.030); UROBILINOGEN 0.2 E.U./dl (0.0-1.0)
[2024-01-19 21:41] LABS: URINE AMPHETAMINES Negative (1000ng/ml); URINE BARBITURATES Negative (200ng/ml); URINE BENZODIAZEPINES Negative (200ng/ml); URINE CANNABINOIDS (THC) Positive (50ng/ml); URINE COCAINE Negative (300ng/ml); URINE METHADONE Negative (300ng/ml); URINE OPIATES Negative (300ng/ml); URINE PHENCYCLIDINE Negative (25ng/ml)
== END 2024-01-20 11:00 | disposition home or self-care (01) ==
LOC: ED 18:03
PROVIDERS: Physician Assistant Medical
DX: T42.6X2A Poisoning by other antiepileptic and sedative-hypnotic drugs, intentional self-harm, initial encounter (principal); F43.21 Adjustment disorder with depressed mood; E11.9 Type 2 diabetes mellitus without complications; I10 Essential (primary) hypertension; E78.00 Pure hypercholesterolemia, unspecified; F17.200 Nicotine dependence, unspecified, uncomplicated; Z98.890 Other specified postprocedural states; Y92.009 Unspecified place in unspecified non-institutional (private) residence as the place of occurrence of the external cause

== ENCOUNTER 2024-01-28 20:04 | Emergency (ER) | payer OTHER ==
[~2024-01-28] VITALS: Ht 182.8 cm; Wt 81.6 kg
[2024-01-28 20:56] LABS: HEMATOCRIT 33.6 % (42.0-52.0); MEAN CELL VOLUME 62.9 fl (80.0-94.0); MEAN CORPUSCULAR HGB 17.2 pg (27.0-31.0); MEAN CORPUSCULAR HGB CONC 27.4 g/dl (33.0-37.0); PLATELET COUNT AUTOMATED 90 10*3/uL (130-400); RED BLOOD COUNT 5.34 10*6/uL (4.50-5.90); RED CELL DISTRI WIDTH 22.1 % (0-14.5); WHITE BLOOD COUNT 7.4 10*3/uL (4.8-10.8)
[2024-01-28 21:07] LABS: MANUAL DIFF REFLEX YES
[2024-01-28 21:08] LABS: ALKALINE PHOSPHATASE 72 U/L (46-116); BUN 11 mg/dl (9-23); CHLORIDE 107 mmol/L (98-107); POTASSIUM 3.4 mmol/L (3.4-5.1); TOTAL PROTEIN 6.3 gm/dL (6.0-8.0)
[2024-01-28 21:09] LABS: SGPT/ALT < 7 U/L (5-49)
[2024-01-28 21:15] LABS: BASOPHILS 1 % (0-1); OVALOCYTES FEW; PLATELET SUFFICIENCY LOW (NORMAL); POLYCHROMASIA SLIGHT; TOTAL CELLS COUNTED 100 #CELLS
== END 2024-01-28 21:17 | disposition left against medical advice (07) ==
LOC: ED 20:04
PROVIDERS: Internal Medicine
DX: R20.0 Anesthesia of skin (principal); E11.9 Type 2 diabetes mellitus without complications; I10 Essential (primary) hypertension; E78.00 Pure hypercholesterolemia, unspecified; F17.200 Nicotine dependence, unspecified, uncomplicated; Z98.890 Other specified postprocedural states; Z53.29 Procedure and treatment not carried out because of patient's decision for other reasons

== ENCOUNTER 2024-04-05 12:45 | Emergency (ER) | payer OTHER ==
[2024-04-05] MEDS ORDERED: Ondansetron Hydrochloride 4 MG/2 ML VIAL IV ONE (14:00)
[2024-04-05 14:02] LABS: HEMATOCRIT 41.4 % (42.0-52.0); MEAN CELL VOLUME 62.3 fl (80.0-94.0); MEAN CORPUSCULAR HGB 16.3 pg (27.0-31.0); MEAN CORPUSCULAR HGB CONC 26.1 g/dl (33.0-37.0); PLATELET COUNT AUTOMATED 160 10*3/uL (130-400); RED BLOOD COUNT 6.64 10*6/uL (4.50-5.90); RED CELL DISTRI WIDTH 21.8 % (0-14.5); WHITE BLOOD COUNT 11.8 10*3/uL (4.8-10.8)
[2024-04-05 14:06] LABS: MANUAL DIFF REFLEX YES
[2024-04-05 14:16] LABS: ALKALINE PHOSPHATASE 89 U/L (46-116); BUN 16 mg/dl (9-23); CHLORIDE 104 mmol/L (98-107); POTASSIUM 3.6 mmol/L (3.4-5.1); TOTAL PROTEIN 7.2 gm/dL (6.0-8.0)
[2024-04-05 14:19] LABS: SGPT/ALT < 7 U/L (5-49)
[2024-04-05 14:23] LABS: ATYPICAL LYMPHS 1 % (0-0); BASOPHILS 1 % (0-1); MICROCYTOSIS MODERATE; OVALOCYTES MODERATE; PLATELET SUFFICIENCY NORMAL (NORMAL); TOTAL CELLS COUNTED 100 #CELLS
[2024-04-05] MEDS ORDERED: LEVETIRACETAM 500 MG TAB PO ONE (14:35)
[2024-04-05] MEDS ORDERED: Ondansetron Hydrochloride 4 MG TAB PO ONE (14:40)
[2024-04-05] MEDS ORDERED: Ziprasidone Mesylate 20 MG VIAL IM ONE (19:30)
[2024-04-06] MEDS ORDERED: LEVETIRACETAM 500 MG TAB PO ONE (05:35)
[2024-04-06] MEDS ORDERED: KEPPRA1000 MG PO (08:58)
== END 2024-04-06 10:03 | disposition home or self-care (01) ==
LOC: ED 12:45
PROVIDERS: Emergency Medicine
DX: R56.9 Unspecified convulsions (principal); E11.9 Type 2 diabetes mellitus without complications; I10 Essential (primary) hypertension; E78.00 Pure hypercholesterolemia, unspecified; F17.200 Nicotine dependence, unspecified, uncomplicated; Z98.890 Other specified postprocedural states

== ENCOUNTER 2025-01-29 15:08 | Inpatient (IN) | payer OTHER ==
[~2025-01-29] VITALS: Ht 180.3 cm; Wt 84.5 kg
[~2025-01-29 15:08] MED LIST changes: +ATORVASTATIN CA80 M1 PO; +CIPRO500 MG PO; +COMPAZINE10 M1 PO; +FUROSEMIDE20 M1 PO; +KEPPRA1000 MG PO; +LANTUS SOL100 UNIT/1 SQ; +Lovenox80 MG/0.8 SC; +METHOCARBAMOL750 M1 PO; +MIRTAZAPINE30 M2 PO; +NOVOLOG FL100 UNIT/2 SQ; +ONDANSETRON HYDR8 MG PO
[2025-01-29 15:19] VITALS: BP 99/57
[2025-01-29 15:52] LABS: MEAN CELL VOLUME 63.1 fl (80.0-94.0); MEAN CORPUSCULAR HGB 16.0 pg (27.0-31.0); NUCLEATED RED BLOOD CELL 0.0 % (0.0-0.0); NUCLEATED RED BLOOD CELL 0.0 10*3/uL (0.0-0.0); PLATELET COUNT AUTOMATED 112 10*3/uL (130-400); RED CELL DISTRI WIDTH 22.5 % (0-14.5)
[2025-01-29] MEDS ORDERED: IOHEXOL 300 MG/ML 100 ML VIAL IV ONE (15:55)
[2025-01-29 16:01] LABS: ACT PARTIAL THROMBO TIME 30.4 SECONDS (20.0-32.1)
[2025-01-29 16:10] LABS: BUN 20 mg/dl (9-23)
[2025-01-29 16:11] LABS: MANUAL DIFF REFLEX YES; SGPT/ALT < 7 U/L (5-49)
[2025-01-29 16:14] LABS: BASOPHILS 1 % (0-1); PLATELET SUFFICIENCY LOW (NORMAL)
[2025-01-29] MEDS ORDERED: IOHEXOL 300 MG/ML 100 ML VIAL ONE (16:18)
[2025-01-29] MEDS ORDERED: Ondansetron Hydrochloride 4 MG/2 ML VIAL IV ONE (16:45)
[2025-01-29] MEDS ORDERED: HEPARIN SODIUM 250 ML IV SCH (17:30)
[2025-01-29 18:42] VITALS: BP 146/77
[2025-01-29 18:45] VITALS: BP 146/77
[2025-01-29] MEDS ORDERED: METHOCARBAMOL 750 MG TAB PO PRN (18:55)
[2025-01-29] MEDS ORDERED: Acetaminophen/Hydrocodone HP 10/325 PO PRN (18:55)
[2025-01-29] MEDS ORDERED: WARFARIN SODIUM 7.5 MG TAB PO ONE (18:55)
[2025-01-29 20:00] VITALS: BP 109/75
[2025-01-29] MEDS ORDERED: LEVETIRACETAM 500 MG TAB PO SCH (22:00)
[2025-01-29] MEDS ORDERED: PREGABALIN 50 MG CAP PO SCH (22:00)
[2025-01-29] MEDS ORDERED: Mirtazapine 15 MG TAB PO SCH (22:00)
[2025-01-29] MEDS ORDERED: ATORVASTATIN CALCIUM 80 MG TAB PO SCH (22:00)
[2025-01-30] VITALS (7 sets, daily range): BP systolic 111–171; BP diastolic 54–96
[2025-01-30] MEDS ORDERED: WARFARIN SODIUM 7.5 MG TAB PO ONE (08:20)
[2025-01-30] MEDS ORDERED: DEXTROSE 10 % IN WATER 250 ML IV PRN (08:35)
[2025-01-30] MEDS ORDERED: Insulin Glargine, Recombinan 1 UNIT/0.01 ML SC SCH (10:00)
[2025-01-30] MEDS ORDERED: DIGOXIN 125 MCG TAB PO SCH (10:00)
[2025-01-30] MEDS ORDERED: EMPAGLIFLOZIN 10 MG TABLET PO SCH (10:00)
[2025-01-30] MEDS ORDERED: INSULIN REGULAR, HUMAN 1 UNIT/0.01 ML SC SCH (11:30)
[2025-01-30] MEDS ORDERED: FOAM BANDAGE 5X5 T ONE (15:14)
[2025-01-30] MEDS ORDERED: HYDROGEL WOUND DRESSING T ONE (15:14)
[2025-01-30] MEDS ORDERED: SILICONE CONTACT LAYER WOUND DRESSING (VERSATEL) ONE (15:14)
[2025-01-30] MEDS ORDERED: WARFARIN SODIUM 10 MG TAB PO ONE (18:00)
[2025-01-31] VITALS (8 sets, daily range): BP systolic 120–169; BP diastolic 49–68
[2025-01-31 05:54] LABS: BUN 18 mg/dl (9-23)
[2025-01-31 06:15] LABS: MEAN CELL VOLUME 63.6 fl (80.0-94.0); MEAN CORPUSCULAR HGB 15.9 pg (27.0-31.0); NUCLEATED RED BLOOD CELL 0.0 % (0.0-0.0); NUCLEATED RED BLOOD CELL 0.0 10*3/uL (0.0-0.0); PLATELET COUNT AUTOMATED 79 10*3/uL (130-400); RED CELL DISTRI WIDTH 21.9 % (0-14.5)
[2025-01-31 06:55] LABS: MANUAL DIFF REFLEX YES
[2025-01-31 07:03] LABS: PLATELET SUFFICIENCY LOW (NORMAL)
[2025-01-31] MEDS ORDERED: WARFARIN SODIUM 10 MG TAB PO ONE (18:00)
[2025-02-01] VITALS: BP 122/56
[2025-02-01 06:05] LABS: MEAN CELL VOLUME 63.6 fl (80.0-94.0); MEAN CORPUSCULAR HGB 16.2 pg (27.0-31.0); NUCLEATED RED BLOOD CELL 0.0 % (0.0-0.0); NUCLEATED RED BLOOD CELL 0.0 10*3/uL (0.0-0.0); PLATELET COUNT AUTOMATED 80 10*3/uL (130-400); RED CELL DISTRI WIDTH 22.1 % (0-14.5)
[2025-02-01 06:23] LABS: MANUAL DIFF REFLEX YES
[2025-02-01 07:27] LABS: PLATELET SUFFICIENCY LOW (NORMAL)
[2025-02-01 08:00] VITALS: BP 150/78
[2025-02-01 12:00] VITALS: BP 154/77
[2025-02-01 16:00] VITALS: BP 136/51
[2025-02-01] MEDS ORDERED: WARFARIN SODIUM 7.5 MG TAB PO ONE (18:00)
[2025-02-01 20:00] VITALS: BP 146/70
[2025-02-01] MEDS ORDERED: Ondansetron Hydrochloride 4 MG/2 ML VIAL IV PRN (21:30)
[2025-02-02] VITALS: BP 148/58
[2025-02-02 05:13] LABS: ACT PARTIAL THROMBO TIME 51.3 SECONDS (20.0-32.1)
[2025-02-02 05:23] LABS: BUN 18 mg/dl (9-23)
[2025-02-02 06:10] LABS: MEAN CELL VOLUME 64.1 fl (80.0-94.0); MEAN CORPUSCULAR HGB 16.0 pg (27.0-31.0); NUCLEATED RED BLOOD CELL 0.0 % (0.0-0.0); NUCLEATED RED BLOOD CELL 0.0 10*3/uL (0.0-0.0); PLATELET COUNT AUTOMATED 82 10*3/uL (130-400); RED CELL DISTRI WIDTH 22.2 % (0-14.5)
[2025-02-02 06:57] LABS: MANUAL DIFF REFLEX YES
[2025-02-02 07:00] LABS: PLATELET SUFFICIENCY LOW (NORMAL)
[2025-02-02 08:00] VITALS: BP 174/72
[2025-02-02 12:00] VITALS: BP 121/89
[2025-02-02] MEDS ORDERED: WARFARIN SODIUM1 MG PO (15:17)
[2025-02-02] MEDS ORDERED: Coumadin5 MG PO (15:17)
[2025-02-02] MEDS ORDERED: WARFARIN SODIUM 6 MG TAB PO ONE (15:25)
== END 2025-02-02 16:59 | disposition home or self-care (01) | DRG 300 ==
LOC: ED 15:08 → EDHOLD 17:31 → 5E 17:31 → 4E 02-01 14:07
PROVIDERS: Internal Medicine; ADMIT Internal Medicine; ATTEND Internal Medicine
DX: I82.401 Acute embolism and thrombosis of unspecified deep veins of right lower extremity (principal); I48.21 Permanent atrial fibrillation; I82.411 Acute embolism and thrombosis of right femoral vein; I82.431 Acute embolism and thrombosis of right popliteal vein; I82.441 Acute embolism and thrombosis of right tibial vein; D63.8 Anemia in other chronic diseases classified elsewhere; N18.32 Chronic kidney disease, stage 3b; E11.22 Type 2 diabetes mellitus with diabetic chronic kidney disease; E78.2 Mixed hyperlipidemia; E11.65 Type 2 diabetes mellitus with hyperglycemia; I12.9 Hypertensive chronic kidney disease with stage 1 through stage 4 chronic kidney disease, or unspecified chronic kidney disease; G40.409 Other generalized epilepsy and epileptic syndromes, not intractable, without status epilepticus; E11.42 Type 2 diabetes mellitus with diabetic polyneuropathy; Z91.118 Patient's noncompliance with dietary regimen for other reason; Z86.73 Personal history of transient ischemic attack (TIA), and cerebral infarction without residual deficits; Z83.3 Family history of diabetes mellitus; Z82.49 Family history of ischemic heart disease and other diseases of the circulatory system